=== PATIENT | female | born 1945 | race Caucasian/White ===

== ENCOUNTER → 2017-07-30 | Outpatient (CLI) | payer MEDICARE, BC ==
--- NOTE | 2017-07-31 12:08 | MM ---
Reason for exam: screening (asymptomatic). Last mammogram was performed 1 year and 4 months ago. History: Patient is postmenopausal. Family history of breast cancer in cousin, breast cancer in paternal cousin, and breast cancer in aunt. Benign excisional biopsy, January 26, 1997. 4 cyst aspirations of the right breast. Took estrogen for 19 years. Physical Findings: A clinical breast exam by your physician is recommended on an annual basis and results should be correlated with mammographic findings. MG 3D Screening Mammo W/Cad Bilateral CC and MLO view(s) were taken. Prior study comparison: April 11, 2016, bilateral MG 3d screening mammo w/cad. September 28, 2011, bilateral digital screening mammo w/CAD. The breast tissue is heterogeneously dense. This may lower the sensitivity of mammography. Finding: There are typically benign vascular, round calcifications in both breasts. Previous mammotome biopsy in the left breast. There is a chronic nodularity in the left breast. Asymmetric breast tissue in the right breast, stable. There is no discrete abnormality. ASSESSMENT: Benign, BI-RAD 2 RECOMMENDATION: Routine screening mammogram of both breasts in 1 year.
== END | disposition home or self-care (01) ==
LOC: RADMAMWWP 16:02
PROVIDERS: ATTEND Family Medicine
DX: Z12.31 Encounter for screening mammogram for malignant neoplasm of breast (principal)
CPT/HCPCS: 77063; G0202

== ENCOUNTER → 2018-08-13 | Outpatient (CLI) | payer MEDICARE, BC ==
--- NOTE | 2018-08-14 08:52 | MM ---
Reason for exam: screening (asymptomatic). Last mammogram was performed 1 year ago. History: Patient is postmenopausal. Family history of breast cancer in mother, breast cancer in maternal aunt, breast cancer in maternal cousin, and breast cancer in paternal cousin. Benign excisional biopsy, January 26, 1997. 4 cyst aspirations of the right breast. Took estrogen for 19 years. Physical Findings: A clinical breast exam by your physician is recommended on an annual basis and results should be correlated with mammographic findings. MG 3D Screening Mammo W/Cad Bilateral CC and MLO view(s) were taken. XCCL view(s) were taken of the right breast. Prior study comparison: July 30, 2017, bilateral MG 3d screening mammo w/cad. April 11, 2016, bilateral MG 3d screening mammo w/cad. The breast tissue is heterogeneously dense. This may lower the sensitivity of mammography. Finding: There are typically benign vascular, round, linear calcifications in both breasts. There is a chronic nodularity in the left breast. There is no discrete abnormality. ASSESSMENT: Benign, BI-RAD 2 RECOMMENDATION: Routine screening mammogram of both breasts in 1 year.
== END | disposition home or self-care (01) ==
LOC: RADMAMWWP 09:44
PROVIDERS: ATTEND Family Medicine
DX: Z12.31 Encounter for screening mammogram for malignant neoplasm of breast (principal)
CPT/HCPCS: 77063; 77067

== ENCOUNTER → 2019-11-20 | Outpatient (CLI) | payer MEDICARE, BC ==
[~2019-11-20] MED LIST: REGADENOSON 0.4 MG/5 ML SYRINGE IV ONE
--- NOTE | 2019-11-20 12:10 | NM ---
EXAMINATION TYPE: NM stress lexiscan cardiolite DATE OF EXAM: 11/20/2019 COMPARISON: NONE HISTORY: Angina at rest and chest pain TECHNIQUE: After the intravenous administration of 10.21 mCi Tc 99m Sestamibi - Cardiolite resting S PECT images acquired 45 minutes post injection. The patient received 0.4mg Lexiscan, 25.0 mCi Tc 99m Sestamibi - Stress images obtained [address] injection FINDINGS: Review of stress and rest SPECT images demonstrates decreased uptake along the anterior septal left v entricle towards the apex on stress as compared to rest images Gated analysis shows normal wall motio n with an estimated left ventricular ejection fraction of 55 %. IMPRESSION: Pharmacologically induced left ventricular myocardial ischemia A Yellow level critical message alert has been initiated for Christopher Parikh MD via the [facility] System on 11/20/2019 12:07 PM. This message alert has been sent to Christopher Parikh MD vi a the preferences provided by the clinician for the receipt of Radiology Critical Findings. Message I [id number].
--- NOTE | 2019-11-20 12:36 | EST ---
EXERCISE STRESS AGE: 74 SEX: Female HT: 5'8" WT: 162 pounds PROTOCOL: Lexiscan Cardiolite STAGE: DURATION OF EXERCISE: HEART RATE REST: 71 BLOOD PRESSURE REST: 143/81 MAXIMUM HEART RATE ACHIEVED: 92 MAXIMUM BLOOD PRESSURE: 143/81 85% MPHR: 125 100% MPHR: 147 METS: INDICATIONS: Chest pain. CLINICAL INFORMATION: STRESS DATA: Heart rate 71, pressure is 143/81 mmHg. Baseline EKG showed sinus rhythm. 0.4 mg of Lexiscan given over 15 seconds per protocol. Max heart rate was 92 beats per minute. Maximum blood pressure was 143/81 mmHg. Clinically the patient did not have no symptoms and the EKG did not show any significant ST or T-wave abnormalities concerning for ischemia. CONCLUSION: 1. Nondiagnostic electrocardiogram stress testing in response to Lexiscan. 2. Please follow up on the Cardiolite portion on separate report from Radiology Department. MMODL / IJN: [id number] /
== END | disposition home or self-care (01) ==
LOC: RADNMMAIN 08:48
PROVIDERS: ATTEND Family Medicine
DX: I25.119 Atherosclerotic heart disease of native coronary artery with unspecified angina pectoris (principal)
CPT/HCPCS: 93017; 78452; A9500; J2785

== ENCOUNTER 2019-11-26 07:10 | Inpatient (IN) | payer MEDICARE, BC ==
[~2019-11-26 07:10] MED LIST changes: +ALPRAZolam 0.25 MG TAB PO PRN; +ALPRAZolam 0.5 MG TAB PO PRN; +ASPIRIN 325 MG TAB PO STA; +NITROGLYCERIN SL TABS 0.4 MG TAB SUBLINGUAL PRN; -REGADENOSON 0.4 MG/5 ML SYRINGE IV ONE; +SODIUM CHLORIDE 0.9% 1,000 ML in EMPTY BAG 1 BAG IV ONE
[2019-11-26] MEDS ORDERED: METOPROLOL TARTRATE 12.5 MG TAB PO STA (07:33)
[2019-11-26] MEDS ORDERED: cloNIDine HCL 0.1 MG TAB PO STA (07:33)
[2019-11-26] MEDS ORDERED: INSULIN ASPART (NovoLOG) 100 UNIT/ML VIAL SQ ONE (07:43)
[2019-11-26 07:49] LABS: Glucose,Whole Blood 263 mg/dL (75-99)
[2019-11-26 07:53] LABS: Basophils % (A) 1 %; Eosinophils # (A) 0.1 k/uL (0-0.7); Eosinophils % (A) 1 %; HCT 41.5 % (34.0-46.0); HGB 14.4 gm/dL (11.4-16.0); Lymphocytes # (A) 2.4 k/uL (1.0-4.8); Lymphocytes % (A) 30 %; MCH 29.7 pg (25.0-35.0); MCHC 34.8 g/dL (31.0-37.0); MCV 85.4 fL (80.0-100.0); Mean Platelet Volume 8.1; Monocytes # (A) 0.4 k/uL (0-1.0); Monocytes % (A) 5 %; Neutrophils # (A) 4.9 k/uL (1.3-7.7); Neutrophils % (A) 61 %; Platelet Count 267 k/uL (150-450); RBC 4.86 m/uL (3.80-5.40); RDW 12.7 % (11.5-15.5)
[2019-11-26 08:04] LABS: African American GFR (CKD) >90 (>60 ml/min/1.73 sqM); Anion Gap 11 mmol/L; Blood Urea Nitrogen 18 mg/dL (7-17); Calcium 9.9 mg/dL (8.4-10.2); Carbon Dioxide 34 mmol/L (22-30); Chloride 93 mmol/L (98-107); Glucose 268 mg/dL (74-99); Non-African American GFR(CKD) >90 (>60 ml/min/1.73 sqM); Sodium 138 mmol/L (137-145)
[2019-11-26] MEDS ORDERED: MIDAZOLAM 2 MG/2 ML VIAL IVP ONE (09:05)
[2019-11-26] MEDS ORDERED: LIDOCAINE 1% INJ 10MG/ML (20 ML MDV) SQ ONE (09:07)
[2019-11-26] MEDS: VERAPAMIL SYRINGE (5 MG/10 ML) INTRAARTER ONE ×2 (09:13→10:47)
[2019-11-26] MEDS ORDERED: POTASSIUM CHLORIDE ER 20 MEQ TAB.ER PO ONE (09:15)
[2019-11-26] MEDS ORDERED: HEPARIN SODIUM 1,000 UN/ML (10ML VL) IV ONE (09:15)
[2019-11-26] MEDS ORDERED: BIVALIRUDIN BOLUS 250 MG/50 ML IV ONE (09:35)
[2019-11-26] MEDS ORDERED: BIVALIRUDIN 250 MG in SODIUM CHLORIDE 0.9% 50 ML IV ONE ×2 (09:36→10:34)
[2019-11-26] MEDS ORDERED: IOPAMIDOL-370 100ML BTL INJ ONE ×3 (09:37→10:46)
[2019-11-26] MEDS ORDERED: POTASSIUM CHLORIDE ER 20 MEQ TAB.ER PO STA ×2 (09:43→10:55)
[2019-11-26] MEDS ORDERED: NITROGLYCERIN 1000MCG/10ML SYRINGE INTRACORON ONE (10:42)
[2019-11-26] MEDS ORDERED: TICAGRELOR 90 MG TAB PO ONE (10:46)
[2019-11-26] MEDS ORDERED: ATROPINE SULFATE 0.1 MG/ML 10ML SYRINGE IV PRN (11:04)
[2019-11-26] MEDS ORDERED: MAG HYDROX/AL HYDROX/SIMETH 30 ML CUP PO PRN (11:04)
[2019-11-26] MEDS ORDERED: RX INFO: IV CONTRAST WAS GIVEN 1 EACH MISC MISCELLANE PRN (11:04)
--- NOTE | 2019-11-26 11:49 | CC ---
CARDIAC CATHETERIZATION REPORT DATE OF SERVICE: 11/26/2019. PROCEDURE: 1. Left heart catheterization and coronary angiography. 2. PTCA and stenting of a calcified tortuous mid LAD with a drug-eluting stent. PERFORMED BY: Dr. Jv Kee Moderate conscious sedation time was 109 minutes. Patient was administered Versed. Oxygen saturation, hemodynamics and EKG were monitored closely. CLINICAL INFORMATION: Mrs. Alia Gilman is a 74-year-old lady with history of type 2 diabetes insulin- requiring, hypertension, hypercholesterolemia who had a recent positive stress test with anteroapical reversible defect and preserved LV function. She was advised coronary angiography after due discussion regarding risks, benefits, options. She was advised cardiac catheterization and possible PCI based on the findings. PROCEDURE NOTE: Under local anesthesia and strict aseptic precautions, a 6-Khmer introducer was placed in the right radial artery. Using a JL3.5 and a JR4 catheter, I performed selective coronary angiography and using the same right catheter I checked LV pressures. LV gram was not performed. Following the coronary angiography because of a significant lesion in the mid LAD, I proceeded to perform PCI in the same setting. At the end of the procedure, the sheath was taken out and TR band applied as per protocol with excellent saturation of the fingers of the right hand. CARDIAC CATHETERIZATION FINDINGS: RIGHT CORONARY ARTERY: This comes off from somewhat of a posterior location. This is a nondominant vessel, fair in caliber distally bifurcates into 2 branches, both of which are small in caliber and distribution, but no significant disease in the nondominant RCA. LEFT MAIN CORONARY ARTERY. It appears that the left main is very small or there are 2 separate origins of LAD and circumflex right next to each other. No significant disease. LEFT ANTERIOR DESCENDING CORONARY ARTERY: Good caliber vessel extends along the anterior wall and it gives off a large septal branch proximally and then a small diagonal branch after which there is an eccentric 90% lesion following which the caliber improves and the vessel is very tortuous, calcified, extends all the way to the apex and curves over the apex to supply the inferoapical portion of left ventricle. Mid LAD therefore has a heavily calcified eccentric lesion and there is a quite a bit of tortuosity and calcium in and after the lesion and also before the lesion. LEFT POSTERIOR CIRCUMFLEX CORONARY ARTERY: This is a dominant vessel gives off a large obtuse marginal that runs laterally and distally bifurcates into a large PDA branch and a small PLV branch both of which supply a fair amount of myocardium. No significant disease is noted in the circumflex system. LEFT VENTRICULOGRAM: LV gram was not performed. FINAL IMPRESSION: This patient has no gradient across aortic valve. Left ventricular end-diastolic pressure was about 8 to 10 mmHg. There was no gradient across aortic valve. Patient has a codominant probably a left dominant system. No significant disease in the RCA or in the dominant circumflex. Mid LAD has a 90% eccentric calcified lesion and the vessel is quite tortuous. RECOMMENDATIONS: I recommended PCI of mid LAD and proceeded to perform in the same setting. PCI PROCEDURE DETAILS: Initially I started with a JL3.5 guide catheter and a run-through wire. With some difficulty I was able to get into the LAD because the origin of LAD was right next to the circumflex. The wire was kept going into the septal branch and I had difficulty getting the wire into the LAD because of extreme tortuosity right after the lesion. The wire was then kept in the septal branch for quite some time. I then switched over to XBLAD 3.5 guide catheter and I used a 45-degree angle SuperCross catheter and a long run-through wire. With this I was able to get past the tortuosity and went into the LAD and kept the wire distally. However, guide support was quite difficult to advance any balloon. After some deliberation and trying for quite a bit of time, I used a GuideLiner. Using a GuideLiner, I was able to advance a 2.5, 18 mm NC Trek balloon and I inflated the lesion at 12 atmospheres. There was a small flap noted right after the angiogram. Using the GuideLiner in the same position, the wire then came into the septal branch back from the distal LAD. I left the wire in the septal branch and advanced a 3.0 caliber 18 mm long Xience stent and deployed this at 12 atmospheres. Patient had mild chest discomfort, but no significant EKG changes. She has underlying right bundle. Excellent angiographic result without complication was achieved. Patient received Angiomax bolus and infusion and also received 180 mg of Brilinta orally. The entire LAD opened up very well with remarkably good flow and the residual stenosis was 0%. Excellent angiographic result was achieved without complication. Results were discussed with the patient and daughter and I will discharge her home if she remains stable tomorrow morning. She was sent to the room in a stable condition with a TR band in place. Patient received Angiomax bolus and infusion as per protocol and 180 mg of Brilinta. MMODL / IJN: [id number] /
[2019-11-26 11:51] LABS: Glucose,Whole Blood 233 mg/dL (75-99)
--- NOTE | 2019-11-26 11:54 | LTR ---
November 26, 2019 Re: Alia Gilman Dear Dr. Parikh: Please find enclosed my detailed cardiac cath and PCI report on Mrs. Alia Gilman. This lady had a mid LAD lesion and I am pleased to report to you that she had an excellent angiographic result without complication. I expect that she will be discharged tomorrow if she remains stable. Thank you for your referral and please call for questions. With kindest regards. Sincerely yours, MD YAN Dos Santos / AMANDAN: [id number] /
[2019-11-26] MEDS: POTASSIUM CHLORIDE ER 20 MEQ TAB.ER PO STA ×2 (11:55→12:01)
[2019-11-26] MEDS: SODIUM CHLORIDE 0.9% 1,000 ML IV SCH (12:01)
[2019-11-26 13:39] LABS: Glucose,Whole Blood 314 mg/dL (75-99)
--- NOTE | 2019-11-26 14:12 | CT ---
EXAMINATION TYPE: CT brain wo con DATE OF EXAM: 11/26/2019 HISTORY: altered mental status CT DLP: 3214.4 mGycm. Automated Exposure Control for Dose Reduction was Utilized. TECHNIQUE: CT scan of the head is performed without contrast. COMPARISON: None. FINDINGS: There is no acute intracranial hemorrhage or midline shift identified. There is diffuse v entricular and sulcal prominence consistent with diffuse age-related cerebral atrophy. There is low- attenuation in the periventricular white matter consistent with chronic small vessel ischemic change. The globes are intact and the visualized sinuses are clear. IMPRESSION: No acute intracranial hemorrhage or midline shift. There is mild diffuse age-related ce rebral atrophy and chronic small vessel ischemic change noted.
[2019-11-26 14:40] LABS: ALT 18 U/L (4-34); AST 51 U/L (14-36); African American GFR (CKD) >90 (>60 ml/min/1.73 sqM); Albumin 4.3 g/dL (3.5-5.0); Alkaline Phosphatase 90 U/L (38-126); Anion Gap 12 mmol/L; Blood Urea Nitrogen 14 mg/dL (7-17); Calcium 9.4 mg/dL (8.4-10.2); Carbon Dioxide 27 mmol/L (22-30); Chloride 94 mmol/L (98-107); Glucose 254 mg/dL (74-99); Non-African American GFR(CKD) >90 (>60 ml/min/1.73 sqM); Potassium 4.1 mmol/L (3.5-5.1); Sodium 133 mmol/L (137-145); Total Bilirubin 1.2 mg/dL (0.2-1.3); Total Protein 7.2 g/dL (6.3-8.2)
[2019-11-26] MEDS ORDERED: HALOPERIDOL LACTATE 5 MG/ML 1 ML VIAL IVP PRN (14:43)
[2019-11-26] MEDS ORDERED: HALOPERIDOL LACTATE 5 MG/ML 1 ML VIAL ONE (14:45)
[2019-11-26] MEDS ORDERED: LORazepam 2 MG/ML INJ IV STA (14:53)
[2019-11-26] MEDS ORDERED: ALTEPLASE BOLUS 7 MG in EMPTY SYRINGE 1 SYR IV STA (14:54)
[2019-11-26] MEDS ORDERED: ALTEPLASE 59 MG in EMPTY BAG 1 BAG IV ONE (15:00)
--- NOTE | 2019-11-26 16:04 | CT ---
EXAMINATION TYPE: CODE STROKE: CTA head neck DATE OF EXAM: 11/26/2019 HISTORY: Acute change of mental status post cath. COMPARISON: CT brain same date CT DLP: 498.7 mGycm. Automated Exposure Control for Dose Reduction was Utilized. TECHNIQUE: CTA scan of the neck is performed with IV Contrast, patient injected with 65 mL of Isovue 370, axial images are obtained, coronal and sagittal reformatted images are reviewed. Three-D recons tructed images are created on an independent workstation and reviewed. FINDINGS: Carotid/Vascular Structures: Ascending aorta is aneurysmal measuring approximately 4.4 cm. Proximal d escending aorta measures 2.9 cm. There are 3 super aortic branch vessels. The innominate artery, left and right common carotid artery, left and right subclavian arteries are patent, the left vertebral a rtery is dominant. The common carotid arteries show normal bifurcation, only mild atheromatous change s are present, internal and external carotid arteries are patent. Anterior posterior circulation with in [place] are patent, there is no evident dissection, embolus, or aneurysm. Carotid sip hons. Cerebral vascular calcifications are present within the Other: Degenerative disc changes, facet arthropathy noted in the visualized spine, multilevel fora hardy encroachment. Arthropathy noted within the shoulders. IMPRESSION: Aortic aneurysm is partially visualized. No evident aneurysm, dissection, or embolus.
[2019-11-26 16:27] LABS: Basophils % (A) 0 %; Eosinophils % (A) 0 %; HCT 41.6 % (34.0-46.0); HGB 13.5 gm/dL (11.4-16.0); Lymphocytes # (A) 1.4 k/uL (1.0-4.8); Lymphocytes % (A) 11 %; MCH 29.3 pg (25.0-35.0); MCHC 32.4 g/dL (31.0-37.0); Mean Platelet Volume 8.1; Monocytes # (A) 0.6 k/uL (0-1.0); Monocytes % (A) 5 %; Neutrophils % (A) 82 %; Platelet Count 220 k/uL (150-450); RBC 4.59 m/uL (3.80-5.40); RDW 12.7 % (11.5-15.5); WBC 12.2 k/uL (3.8-10.6)
[2019-11-26 16:31] LABS: MCV 90.5 fL (80.0-100.0)
[2019-11-26 16:31] LABS: INR 1.1 (<1.2); Partial Thromboplastin Time 26.9 sec (22.0-30.0)
[2019-11-26 16:34] LABS: African American GFR (CKD) >90 (>60 ml/min/1.73 sqM); Anion Gap 13 mmol/L; Blood Urea Nitrogen 12 mg/dL (7-17); Calcium 9.3 mg/dL (8.4-10.2); Carbon Dioxide 23 mmol/L (22-30); Chloride 96 mmol/L (98-107); Glucose 248 mg/dL (74-99); Magnesium 1.3 mg/dL (1.6-2.3); Non-African American GFR(CKD) >90 (>60 ml/min/1.73 sqM); Potassium 4.6 mmol/L (3.5-5.1); Sodium 132 mmol/L (137-145)
[2019-11-26 17:13] LABS: Creatine Kinase MB 1.3 ng/mL (0.0-2.4)
[2019-11-26] MEDS: glipiZIDE 10 MG TAB PO SCH (17:18)
[2019-11-26 17:22] LABS: Troponin I 0.135 ng/mL (0.000-0.034)
--- NOTE | 2019-11-26 17:34 | P.CNNES ---
History of Present Illness Consult date: 11/26/19 Requesting physician: Shelia Henderson Reason for Consult: Acute stroke History of Present Illness: Patient is a 74-year-old female, who came for an elective cardiac catheterization today, in which she was found to have mid LAD lesion for which she underwent cardiac stenting. Patient came out of cardiac catheterization in normal mentation. Her last known well was at 1 PM. Patient was noted to have acute mental confusion, not able to speak, encephalopathic, noted at 1:30 PM. Stroke code was activated. Her NIH stroke scale was reported as 9. The stroke team spoke to the on-call stroke neurologist Dr. Billy, who recommended intravenous thrombolysis with TPA. The nurses in the ICU, and MsShoshana Shelia Beatriz, STULL INSTALLER called me at 2:42 PM, for me to go over her computed tomography scan of the head. I looked at the computed tomography scan of head on the computer, and there were no signs of any bleed or obvious contraindications. I recommended to proceed with TPA (based only upon my review of CT head), if recommended by on- call stroke neurologist. I then received a text through [employer] at 3:31 PM, the patient still has not received TPA and the nurse and cardiology nurse practitioner. Ms Shelia Beatriz were concerned about giving TPA, as patient has received aspirin 325 mg, Brilinta 180 mg, heparin bolus of 2500 units earlier this morning and also Angiomax 375 mg at 10 AM. The ICU team and cardiology STULL INSTALLER wanted me to come over and evaluate the patient. I immediately came over and saw the patient. Patient was significantly encephalopathic, not opening her eyes, or following commands, or speaking any words. Patient appeared somewhat restless, although better than how she was earlier reported with acute agitation. Patient's examination did not reveal any obvious focality, as her pupils are round and reacting, gaze is midline, her face appeared symmetric and she was moving all 4 extremities somewhat equally. Patient did have plantars upgoing. At the same time, report of CTA came, which showed no large vessel occlusion. I spoke to the stroke neurologist Dr Smith, and discussed about the medication she has received earlier, who felt it was still safe to give IV TPA. Patient was not a candidate for mechanical thrombectomy based upon CTA head and neck report. Computed tomography scan of head performed at 2:09 PM showed no acute process. No midline shift. CTA of head and neck performed at 3:43 PM showed aortic aneurysm is partially visualized. No evident aneurysm, dissection or embolus. No large vessel occlusion or thrombus. Patient's PTT is normal 26.9 and INR 1.1. CBC with WBC 12.2, hemoglobin 13.5 and platelets 220. Sodium 132 potassium 4.6 renal functions normal, glucose 248 lactate 3.5. Patient prior to arrival to the hospital today, was neurologically completely intact, as per cardiology report. Review of Systems ROS unobtainable: due to mental status Past Medical History Past Medical History: Chest Pain / Angina, Diabetes Mellitus, Hypertension History of Any Multi-Drug Resistant Organisms: None Reported Past Surgical History: Cholecystectomy, Hysterectomy, Tonsillectomy Additional Past Surgical History / Comment(s): rectocele/cystocle repair Past Anesthesia/Blood Transfusion Reactions: No Reported Reaction Past Psychological History: No Psychological Hx Reported Smoking Status: Never smoker Past Alcohol Use History: None Reported Past Drug Use History: None Reported - Past Family History Mother Family Medical History: Cancer Brother(s) Family Medical History: Cancer Medications and Allergies Home Medications Medication Instructions Recorded Confirmed Type Aspirin [Adult Low Dose Aspirin EC] 81 mg PO HS 11/23/19 11/26/19 History Chlorthalidone [Hygroton] 25 mg PO DAILY 11/23/19 11/26/19 History Cholecalciferol [Vitamin D3 (25 5,000 unit PO DAILY 11/23/19 11/26/19 History Mcg = 1000 Iu)] Furosemide [Lasix] 20 mg PO Q48H 11/23/19 11/26/19 History Metoprolol Tartrate [Lopressor] 12.5 mg PO BID 11/23/19 11/26/19 History Potassium Chloride 10 meq PO BID 11/23/19 11/26/19 History Rosuvastatin Calcium [Crestor] 5 mg PO HS 11/23/19 11/26/19 History cloNIDine HCL [Catapres] 0.1 mg PO DAILY 11/23/19 11/26/19 History glipiZIDE [Glucotrol] 20 mg PO AC-BID 11/23/19 11/23/19 History metFORMIN HCL 1,000 mg PO BID 11/23/19 11/23/19 History Allergies Allergy/AdvReac Type Severity Reaction Status Date / Time clarithromycin [From Biaxin] Allergy Chest Pain Unverified 11/23/19 14:46 primidone Allergy Unknown Unverified 11/23/19 14:46 Physical Examination - Vital Signs Vital Signs: Vital Signs Temp Pulse Pulse Resp BP BP Pulse Ox 11/26/19 12:00 60 19 11/26/19 11:49 60 114/70 11/26/19 11:34 141/86 11/26/19 11:19 145/70 11/26/19 11:04 96.9 F L 61 19 134/70 100 11/26/19 07:39 183/99 11/26/19 07:31 98.1 F 94 16 190/104 100 Intake and Output 11/26/19 11/26/19 11/26/19 06:59 14:59 22:59 Intake Total 722 Balance 722 Intake: IV 722 Other: Weight 73.4 kg On examination patient is an elderly female, who is laying in the bed, appears encephalopathic, eyes closed, slightly restless, does not open her eyes to calling her name. She does not open her eyes to sternal rub, or with painful stimuli, although tries to withdraw her hands purposefully on both sides. She does move all 4 extremities somewhat equally although right may be (?slightly) better than the left. Her face appears symmetric. Pupils are round and reactive to light. Visual narvaez could not be tested. Gaze is midline. Reflexes are symmetric and plantars are upgoing bilaterally. Tone is equal bilaterally. Results - Laboratory Findings CBC and BMP: 11/26/19 13:38 11/26/19 16:05 Abnormal Lab Findings: Abnormal Labs 11/26/19 11/26/19 11/26/19 07:30 07:38 11:50 WBC Neutrophils # Sodium Potassium 3.0 L Chloride 93 L Carbon Dioxide 34 H BUN 18 H Creatinine Glucose 268 H POC Glucose (mg/dL) 263 H 233 H Plasma Lactic Acid Rosendo Magnesium AST 11/26/19 11/26/19 11/26/19 13:37 13:38 13:38 WBC 12.2 H Neutrophils # 10.0 H Sodium 133 L Potassium Chloride 94 L Carbon Dioxide BUN Creatinine 0.46 L Glucose 254 H POC Glucose (mg/dL) 314 H Plasma Lactic Acid Rosendo Magnesium AST 51 H 11/26/19 11/26/19 16:05 16:05 WBC Neutrophils # Sodium 132 L Potassium Chloride 96 L Carbon Dioxide BUN Creatinine 0.45 L Glucose 248 H POC Glucose (mg/dL) Plasma Lactic Acid Rosendo 3.5 H* Magnesium 1.3 L AST Assessment and Plan Assessment: * Acute onset of encephalopathy, with altered mental status, post cardiac cath. Rule out acute CVA versus acute metabolic encephalopathy versus seizure. Patient at present is mute, not talking, encephalopathic, otherwise limited exam appears not definitively lateralizing. She does have bilateral Babinski sign. * Coronary artery disease, status post cardiac stenting. * Hypertension * Diabetes Plan: * Patient is going to receive intravenous TPA per protocol. * Standard Post-TPA orders needs to be followed. * No anticoagulants, or antiplatelets for the next 24 hours. * Repeat computed tomography scan of head in 24 hours to rule out any bleed. * Recommend MRI of the brain if possible (in relation to recent cardiac stenting) * We will check hemoglobin A1c, fasting a.m. lipid panel, TSH and ammonia. * 2-D echo with bubble study, rule out PFO or other embolic source. * EEG in the morning. * Close neuro checks. Call neurology if any acute neurological changes. * Also spoke to aluminum shingle roofer Dr. Kee. He in the ICU staff has discussed with the family about risk and benefits of TPA. PT/PTT and platelets are normal.
--- NOTE | 2019-11-26 17:57 | PN ---
PROGRESS NOTE DATE OF SERVICE: 11/26/2019 Mrs. Alia Gilman is a lady with type 2 diabetes, hypertension, hyperlipidemia, who is 74 years of age and also had a strongly positive stress test with symptoms strongly suggestive of angina pectoris. She was brought in for coronary angiography which was performed from right radial approach. There was tortuosity in the brachiocephalic system as well as the ascending aorta. However, coronary angiography revealed 90% mid left anterior descending artery lesion following an area of calcification and significant tortuosity beyond that. The percutaneous transluminal coronary angioplasty was a prolonged procedure. I had to use a Guideliner. However, an excellent angiographic result was achieved uneventfully. The patient received Angiomax bolus and infusion and she also received Brilinta 180 mg orally. She was brought back to the room, was quite stable for a couple of hours, and then she developed an episode of being confused and also quite agitated and quite disoriented. Possibility of stroke was considered. A code stroke was called. She had a CAT scan which did not reveal any bleed. She went on to have a CT angio after adequate sedation and that also did not reveal any evidence of thrombus or obstruction of any of the major visualized arterial system intracranially also. However, I spoke to Dr. Mcgrath and he felt under the circumstances tPA is still indicated and he thought possibly that maybe there may be a small clot which is not visualized. Given this, we went ahead with the tPA as per protocol. The patient remains quite sedated because of Haldol as well. She is able to move all four extremities, although this is not a purposeful movement in view of the sedation. She is hemodynamically stable. The right radial cath site is clean and dry with a decent saturation of the fingers. We are gradually reducing the pressure to up to 2 mL of air and we will see how she does. The patient's blood pressure is 150/90, pulse rate is 84 per minute. No jugular venous distention. S1 and S2 hear normally. A short systolic murmur noted. Lungs are clear. Neurological examination was not possible. Radial site is clean and dry. We will hydrate her with 75 mL normal saline for 18 hours. Lactate is slightly high because of her clinical situation. We will go ahead and continue the tPA as per protocol, perform a CAT scan tomorrow morning, and if there is no bleed, will resume aspirin and Brilinta in 36 to 48 hours. I discussed my thoughts in detail with the patient's daughter, Frida Madrid, and I also spoke to Dr. Garcia and Dr. Parikh. Prognosis remains guarded. I will be evaluating her again tomorrow. YAN / MAGALI: [id number] /
--- NOTE | 2019-11-26 18:31 | P.CONS ---
History of Present Illness - Reason for Consult Consult date: 11/26/19 - Chief Complaint Alertered mental status - History of Present Illness This is a 74-year-old white female with known history of diabetes who had abnormal stress test. She had appropriate cardiac catheterization after the stress test which proved to be fairly straightforward from a cardiology per spective. However postoperatively she had mental status changes requiring TPA after evaluation from neurology. The patient is now obtunded secondary to sedative medication. Review of Systems ROS unobtainable: due to mental status Past Medical History Past Medical History: Chest Pain / Angina, Diabetes Mellitus, Hypertension History of Any Multi-Drug Resistant Organisms: None Reported Past Surgical History: Cholecystectomy, Hysterectomy, Tonsillectomy Additional Past Surgical History / Comment(s): rectocele/cystocle repair Past Anesthesia/Blood Transfusion Reactions: No Reported Reaction Past Psychological History: No Psychological Hx Reported Smoking Status: Never smoker Past Alcohol Use History: None Reported Past Drug Use History: None Reported - Past Family History Mother Family Medical History: Cancer Brother(s) Family Medical History: Cancer Medications and Allergies Home Medications Medication Instructions Recorded Confirmed Type Aspirin [Adult Low Dose Aspirin EC] 81 mg PO HS 11/23/19 11/26/19 History Chlorthalidone [Hygroton] 25 mg PO DAILY 11/23/19 11/26/19 History Cholecalciferol [Vitamin D3 (25 5,000 unit PO DAILY 11/23/19 11/26/19 History Mcg = 1000 Iu)] Furosemide [Lasix] 20 mg PO Q48H 11/23/19 11/26/19 History Metoprolol Tartrate [Lopressor] 12.5 mg PO BID 11/23/19 11/26/19 History Potassium Chloride 10 meq PO BID 11/23/19 11/26/19 History Rosuvastatin Calcium [Crestor] 5 mg PO HS 11/23/19 11/26/19 History cloNIDine HCL [Catapres] 0.1 mg PO DAILY 11/23/19 11/26/19 History glipiZIDE [Glucotrol] 20 mg PO AC-BID 11/23/19 11/23/19 History metFORMIN HCL 1,000 mg PO BID 11/23/19 11/23/19 History Allergies Allergy/AdvReac Type Severity Reaction Status Date / Time clarithromycin [From Biaxin] Allergy Chest Pain Unverified 11/23/19 14:46 primidone Allergy Unknown Unverified 11/23/19 14:46 Physical Exam Vitals: Vital Signs Temp Pulse Pulse Resp BP BP Pulse Ox 11/26/19 15:30 97.7 F 96 11/26/19 12:00 60 19 11/26/19 11:49 60 114/70 11/26/19 11:34 141/86 11/26/19 11:19 145/70 11/26/19 11:04 96.9 F L 61 19 134/70 100 11/26/19 07:39 183/99 11/26/19 07:31 98.1 F 94 16 190/104 100 Intake and Output 11/26/19 11/26/19 11/26/19 06:59 14:59 22:59 Intake Total 722 Balance 722 Intake: IV 722 Other: Weight 73.4 kg - Constitutional General appearance: no acute distress - EENT Eyes: EOMI - Neck Neck: no lymphadenopathy - Respiratory Respiratory: bilateral: CTA - Cardiovascular Rhythm: regular Heart sounds: normal: S1, S2 Abnormal Heart Sounds: no S3 Gallop - Gastrointestinal General gastrointestinal: soft, no tenderness - Integumentary Integumentary: no cellulitis - Neurologic Neurologic: CNII-XII intact - Psychiatric Psychiatric: no A&O x's 3 Results CBC & Chem 7: 11/26/19 13:38 11/26/19 16:05 Labs: Abnormal Lab Results - Last 24 Hours (Table) 11/26/19 11/26/19 11/26/19 Range/Units 07:30 07:38 11:50 WBC (3.8-10.6) k/uL Neutrophils # (1.3-7.7) k/uL Sodium (137-145) mmol/L Potassium 3.0 L (3.5-5.1) mmol/L Chloride 93 L (98-107) mmol/L Carbon Dioxide 34 H (22-30) mmol/L BUN 18 H (7-17) mg/dL Creatinine (0.52-1.04) mg/dL Glucose 268 H (74-99) mg/dL POC Glucose (mg/dL) 263 H 233 H (75-99) mg/dL Plasma Lactic Acid Rosendo (0.7-2.0) mmol/L Magnesium (1.6-2.3) mg/dL AST (14-36) U/L Troponin I (0.000-0.034) ng/mL 11/26/19 11/26/19 11/26/19 Range/Units 13:37 13:38 13:38 WBC 12.2 H (3.8-10.6) k/uL Neutrophils # 10.0 H (1.3-7.7) k/uL Sodium 133 L (137-145) mmol/L Potassium (3.5-5.1) mmol/L Chloride 94 L (98-107) mmol/L Carbon Dioxide (22-30) mmol/L BUN (7-17) mg/dL Creatinine 0.46 L (0.52-1.04) mg/dL Glucose 254 H (74-99) mg/dL POC Glucose (mg/dL) 314 H (75-99) mg/dL Plasma Lactic Acid Rosendo (0.7-2.0) mmol/L Magnesium (1.6-2.3) mg/dL AST 51 H (14-36) U/L Troponin I (0.000-0.034) ng/mL 11/26/19 11/26/19 11/26/19 Range/Units 13:38 16:05 16:05 WBC (3.8-10.6) k/uL Neutrophils # (1.3-7.7) k/uL Sodium 132 L (137-145) mmol/L Potassium (3.5-5.1) mmol/L Chloride 96 L (98-107) mmol/L Carbon Dioxide (22-30) mmol/L BUN (7-17) mg/dL Creatinine 0.45 L (0.52-1.04) mg/dL Glucose 248 H (74-99) mg/dL POC Glucose (mg/dL) (75-99) mg/dL Plasma Lactic Acid Rosendo 3.5 H* (0.7-2.0) mmol/L Magnesium 1.3 L (1.6-2.3) mg/dL AST (14-36) U/L Troponin I 0.135 H* (0.000-0.034) ng/mL Assessment and Plan (1) Altered mental status Current Visit: Yes Status: Acute Code(s): R41.82 - ALTERED MENTAL STATUS, U NSPECIFIED SNOMED Code(s): 634908864 (2) Diabetes Current Visit: Yes Status: Acute Code(s): E11.9 - TYPE 2 DIABETES MELLITUS WITHOUT COMPLICATIONS SNOMED Code(s): 57169058 (3) Abnormal stress test Current Visit: Yes Status: Acute Code(s): R94.39 - ABNORMAL RESULT OF OTHER CARDIOVASCULAR FUNCTION STUDY SNOMED Code(s): 886659017 Plan: The patient will be placed on appropriate protocol for altered mental status. Per appreciate multiple consultants including neurology, cardiology and critical care. Check CBC and CMP in a.m. She is a full code at this time. Time with Patient: Greater than 30
[2019-11-26] MEDS: METOPROLOL TARTRATE 12.5 MG TAB PO SCH (20:41)
[2019-11-26] MEDS: TICAGRELOR 90 MG TAB PO SCH (20:42)
[2019-11-26 20:52] LABS: Glucose,Whole Blood 353 mg/dL (75-99)
[2019-11-26] MEDS ORDERED: ATORVASTATIN 10 MG TAB PO SCH (21:00)
[2019-11-26] MEDS ORDERED: ZOLPIDEM 5 MG TAB PO PRN (21:00)
[2019-11-26 21:15] LABS: HCT 36.1 % (34.0-46.0); HGB 12.4 gm/dL (11.4-16.0); MCH 29.6 pg (25.0-35.0); MCHC 34.3 g/dL (31.0-37.0); MCV 86.2 fL (80.0-100.0); Mean Platelet Volume 8.9; Platelet Count 179 k/uL (150-450); RBC 4.19 m/uL (3.80-5.40); RDW 12.6 % (11.5-15.5); WBC 12.9 k/uL (3.8-10.6)
[2019-11-26] MEDS ORDERED: INSULIN DETEMIR (LEVEMIR) 100 UNIT/ML SYR SQ SCH (22:30)
[2019-11-26 23:52] LABS: Glucose,Whole Blood 330 mg/dL (75-99)
[2019-11-27] MEDS: INSULIN ASPART (NovoLOG) 100 UNIT/ML VIAL SQ SCH ×4 (00:02→18:29)
[2019-11-27] MEDS: SODIUM CHLORIDE 0.9% 1,000 ML IV SCH (00:04)
[2019-11-27 04:59] LABS: Basophils % (A) 0 %; Eosinophils % (A) 0 %; HCT 35.2 % (34.0-46.0); Lymphocytes # (A) 1.4 k/uL (1.0-4.8); Lymphocytes % (A) 15 %; MCH 29.4 pg (25.0-35.0); MCHC 34.1 g/dL (31.0-37.0); MCV 86.2 fL (80.0-100.0); Mean Platelet Volume 8.1; Monocytes # (A) 0.6 k/uL (0-1.0); Monocytes % (A) 7 %; Neutrophils # (A) 7.1 k/uL (1.3-7.7); Neutrophils % (A) 76 %; Platelet Count 205 k/uL (150-450); RBC 4.08 m/uL (3.80-5.40); RDW 12.8 % (11.5-15.5); WBC 9.3 k/uL (3.8-10.6)
[2019-11-27 05:12] LABS: African American GFR (CKD) >90 (>60 ml/min/1.73 sqM); Anion Gap 10 mmol/L; Blood Urea Nitrogen 13 mg/dL (7-17); Calcium 8.8 mg/dL (8.4-10.2); Carbon Dioxide 27 mmol/L (22-30); Chloride 99 mmol/L (98-107); Cholesterol 107 mg/dL (<200); Glucose 214 mg/dL (74-99); HDL Cholesterol 24 mg/dL (40-60); LDL Cholesterol,Calculated 48 mg/dL (0-99); Magnesium 1.4 mg/dL (1.6-2.3); Non-African American GFR(CKD) >90 (>60 ml/min/1.73 sqM); Sodium 136 mmol/L (137-145); Triglycerides 177 mg/dL (<150)
[2019-11-27 05:20] LABS: Partial Thromboplastin Time 22.2 sec (22.0-30.0); Prothrombin Time 10.7 sec (9.0-12.0)
[2019-11-27 05:28] LABS: Potassium 2.7 mmol/L (3.5-5.1)
[2019-11-27 06:00] LABS: Glucose,Whole Blood 212 mg/dL (75-99)
[2019-11-27] MEDS ORDERED: SODIUM CHLORIDE 0.9% 1,000 ML IV SCH ×2 (06:00→12:00)
[2019-11-27] MEDS: POTASSIUM CHLORIDE 20 MEQ in WATER FOR INJECTION 1 100ML.BAG IVPB SCH ×3 (06:14→13:37)
[2019-11-27] MEDS: MAGNESIUM SULFATE-D5W PMX 1 GM in DEXTROSE/WATER 1 100ML.BAG IVPB SCH ×3 (06:14→11:06)
--- NOTE | 2019-11-27 06:35 | PN ---
PROGRESS NOTE Mrs. Gilman is wide awake this morning, responding to questions, moving all 4 extremities and also speaking fairly well. She knows where she lives and the names of all her daughters. She is going for a CAT scan this morning. Laboratory data suggests a potassium of 2.7 and magnesium of 1.4, and this is being supplemented aggressively. She is going for a CAT scan today. She received tPA yesterday. The right radial cath site is clean and dry with a lot of ecchymoses, but the pulse is good and saturation in the fingers is good. Blood pressure is 118/70, pulse rate is about 84 per minute sinus. JVD 1 cm. No carotid bruit. Short systolic murmur is audible. Lungs revealed decent air entry. Abdomen is soft. Lower extremities reveal diminished pulses. Central nervous system reveals no focal deficits. IMPRESSION: 1. Status post PCI of complex mid LAD lesion, complicated by possible stroke. CAT scan did not reveal any significant bleed or midline shift. CT angio was negative for any evidence of thrombus or obstruction of any of the major vessels. 2. Hypertension. 3. Type 2 diabetes mellitus. 4. History of strongly positive stress test. RECOMMENDATIONS: I am recommending that we continue hydration up to 125 mL/hour normal saline, we will obtain a portable chest x-ray and echocardiogram today. She will have a CAT scan of her head this morning. We will supplement magnesium and potassium aggressively and hydrate her and recheck the lytes an Mg later during the day. Prognosis remains guarded, but clinically patient is much better today. Discussed my thoughts in detail with her and I will speak to her daughter as well. MMODL / IJN: [id number] / MTDD
--- NOTE | 2019-11-27 07:40 | CT ---
EXAMINATION TYPE: CT brain wo con DATE OF EXAM: 11/27/2019 COMPARISON: 11/26/2019 HISTORY: Post TPA Assessment. Altered mental status. CT DLP: 1099.4 mGycm Automated exposure control for dose reduction was used. FINDINGS: There is new small subarachnoid hemorrhage in the left posterior frontal lobe high along the skull ve rtex. The most prominent focus is seen on image 37 in the left hemisphere. Ariza-white matter interfac e is maintained. There is an old appearing lacunar injury of the right thalamus measuring 6 mm on raoms ge 25. No hydrocephalus is seen. No midline shift. Orbits are intact and unremarkable. Rightward nasa l septal deviation is seen. Frontal sinuses are hypoplastic. Paranasal sinuses and mastoid air cells are well aerated. Mild atherosclerosis of the intracranial vasculature. Calvarium is intact. IMPRESSION: 1. NEW LEFT FRONTAL OVERALL SMALL VOLUME SUBARACHNOID HEMORRHAGE. THIS WAS COMMUNICATED WITH A [place] [facility] CRITICAL MESSAGE ALERT SENT TO THE ORDERING PHYSICIAN THE OFFICE WAS CLOSED AT THE TIME OF INT ERPRETATION. Findings were also communicated to nurse Moise who relayed the message to Dr. Garcia in person during our phone conversation at 737am on 11/27/19. 2. 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 ACUITY COULD BE CONFIRMED WITH MRI. A [place] level critical message alert has been initiated for Milena Kee via the [employer] System on 11/27/2019 7:32 AM. This message alert has been sent to Milena Kee via the preferences provided by the clinician for the receipt of Radiology Critical Findings. Message ID [id number].
--- NOTE | 2019-11-27 07:40 | P.PN ---
Subjective Progress Note Date: 11/27/19 Principal diagnosis: The patient is here essentially for significant problems related to altered mental status. Computed tomography scan of the head does show subarachnoid changes. We'll anticipate transfer to appropriate tertiary care center. The patient seems much more oriented today. She seems somewhat mildly slurred secondary to medication changes. She was given Haldol yesterday. No other voiding symptoms. Objective - Vital Signs Vital signs: Vital Signs Temp 98.9 F 11/27/19 06:30 Pulse 81 11/27/19 07:00 Resp 19 11/27/19 07:00 BP 110/59 11/27/19 07:00 Pulse Ox 97 11/27/19 07:00 Intake & Output 11/26/19 11/27/19 11/27/19 18:59 06:59 18:59 Intake Total 722 1205 225 Output Total 2525 65 Balance 722 -1320 160 Weight 73.4 kg 71.7 kg Intake: IV 722 1125 225 Magnesium Sulfate-D5w Pmx 100 1 gm In Dextrose/Water 1 100ml.bag @ 100 mls/hr IVPB Q1H [facility] Rx#: [id number] Sodium Chloride 0.9% 1, 1125 125 000 ml @ 75 mls/hr IV . [id number] [facility] Rx#:[id number] Intake, IV Titration 80 Amount Alteplase 59 mg In Empty 60 Bag 1 bag @ 59 mls/hr IV ONCE ONE Rx#:[id number] Alteplase Bolus 7 mg In 20 Empty Syringe 1 syr @ 420 mls/hr IV ONCE STA Rx#: [id number] Output: Urine 2525 65 Other: Voiding Method Indwelling Catheter Indwelling Catheter - Constitutional General appearance: Present: average body habitus - EENT Eyes: Absent: abnormal pupil - Neck Neck: Absent: lymphadenopathy - Respiratory Respiratory: bilateral: CTA - Cardiovascular Rhythm: regular Heart sounds: normal: S1, S2 Abnormal Heart Sounds: Absent: S3 Gallop - Gastrointestinal General gastrointestinal: Present: soft. Absent: tenderness - Neurologic Neurologic Comment(s): Facial droop noted. - Musculoskeletal Musculoskeletal Comment(s): Lateralizing weakness - Labs CBC & Chem 7: 11/27/19 04:24 11/27/19 04:24 Labs: Abnormal Lab Results - Last 24 Hours (Table) 11/26/19 11/26/19 11/26/19 Range/Units 07:30 07:38 11:50 WBC (3.8-10.6) k/uL Neutrophils # (1.3-7.7) k/uL Sodium (137-145) mmol/L Potassium 3.0 L (3.5-5.1) mmol/L Chloride 93 L (98-107) mmol/L Carbon Dioxide 34 H (22-30) mmol/L BUN 18 H (7-17) mg/dL Creatinine (0.52-1.04) mg/dL Glucose 268 H (74-99) mg/dL POC Glucose (mg/dL) 263 H 233 H (75-99) mg/dL Plasma Lactic Acid Rosendo (0.7-2.0) mmol/L Magnesium (1.6-2.3) mg/dL AST (14-36) U/L Troponin I (0.000-0.034) ng/mL Triglycerides (<150) mg/dL HDL Cholesterol (40-60) mg/dL 11/26/19 11/26/19 11/26/19 Range/Units 13:37 13:38 13:38 WBC 12.2 H (3.8-10.6) k/uL Neutrophils # 10.0 H (1.3-7.7) k/uL Sodium 133 L (137-145) mmol/L Potassium (3.5-5.1) mmol/L Chloride 94 L (98-107) mmol/L Carbon Dioxide (22-30) mmol/L BUN (7-17) mg/dL Creatinine 0.46 L (0.52-1.04) mg/dL Glucose 254 H (74-99) mg/dL POC Glucose (mg/dL) 314 H (75-99) mg/dL Plasma Lactic Acid Rosendo (0.7-2.0) mmol/L Magnesium (1.6-2.3) mg/dL AST 51 H (14-36) U/L Troponin I (0.000-0.034) ng/mL Triglycerides (<150) mg/dL HDL Cholesterol (40-60) mg/dL 11/26/19 11/26/19 11/26/19 Range/Units 13:38 16:05 16:05 WBC (3.8-10.6) k/uL Neutrophils # (1.3-7.7) k/uL Sodium 132 L (137-145) mmol/L Potassium (3.5-5.1) mmol/L Chloride 96 L (98-107) mmol/L Carbon Dioxide (22-30) mmol/L BUN (7-17) mg/dL Creatinine 0.45 L (0.52-1.04) mg/dL Glucose 248 H (74-99) mg/dL POC Glucose (mg/dL) (75-99) mg/dL Plasma Lactic Acid Rosendo 3.5 H* (0.7-2.0) mmol/L Magnesium 1.3 L (1.6-2.3) mg/dL AST (14-36) U/L Troponin I 0.135 H* (0.000-0.034) ng/mL Triglycerides (<150) mg/dL HDL Cholesterol (40-60) mg/dL 11/26/19 11/26/19 11/26/19 Range/Units 20:06 20:06 20:50 WBC 12.9 H (3.8-10.6) k/uL Neutrophils # (1.3-7.7) k/uL Sodium (137-145) mmol/L Potassium (3.5-5.1) mmol/L Chloride (98-107) mmol/L Carbon Dioxide (22-30) mmol/L BUN (7-17) mg/dL Creatinine (0.52-1.04) mg/dL Glucose (74-99) mg/dL POC Glucose (mg/dL) 353 H (75-99) mg/dL Plasma Lactic Acid Rosendo 2.5 H* (0.7-2.0) mmol/L Magnesium (1.6-2.3) mg/dL AST (14-36) U/L Troponin I (0.000-0.034) ng/mL Triglycerides (<150) mg/dL HDL Cholesterol (40-60) mg/dL 11/26/19 11/27/19 11/27/19 Range/Units 23:50 04:24 04:24 WBC (3.8-10.6) k/uL Neutrophils # (1.3-7.7) k/uL Sodium 136 L (137-145) mmol/L Potassium 2.7 L* (3.5-5.1) mmol/L Chloride (98-107) mmol/L Carbon Dioxide (22-30) mmol/L BUN (7-17) mg/dL Creatinine 0.48 L (0.52-1.04) mg/dL Glucose 214 H (74-99) mg/dL POC Glucose (mg/dL) 330 H (75-99) mg/dL Plasma Lactic Acid Rosendo 2.2 H* (0.7-2.0) mmol/L Magnesium 1.4 L (1.6-2.3) mg/dL AST (14-36) U/L Troponin I (0.000-0.034) ng/mL Triglycerides 177 H (<150) mg/dL HDL Cholesterol 24 L (40-60) mg/dL 11/27/19 Range/Units 05:59 WBC (3.8-10.6) k/uL Neutrophils # (1.3-7.7) k/uL Sodium (137-145) mmol/L Potassium (3.5-5.1) mmol/L Chloride (98-107) mmol/L Carbon Dioxide (22-30) mmol/L BUN (7-17) mg/dL Creatinine (0.52-1.04) mg/dL Glucose (74-99) mg/dL POC Glucose (mg/dL) 212 H (75-99) mg/dL Plasma Lactic Acid Rosendo (0.7-2.0) mmol/L Magnesium (1.6-2.3) mg/dL AST (14-36) U/L Troponin I (0.000-0.034) ng/mL Triglycerides (<150) mg/dL HDL Cholesterol (40-60) mg/dL Assessment and Plan (1) Altered mental status Current Visit: Yes Status: Acute Code(s): R41.82 - ALTERED MENTAL STATUS, UNSPECIFIED SNOMED Code(s): 917181011 (2) Diabetes Current Visit: Yes Status: Acute Code(s): E11.9 - TYPE 2 DIABETES MELLITUS WITHOUT COMPLICATIONS SNOMED Code(s): 19856443 (3) Abnormal stress test Current Visit: Yes Status: Acute Code(s): R94.39 - ABNORMAL RESULT OF OTHER CARDIOVASCULAR FUNCTION STUDY SNOMED Code(s): 306854560 (4) Subarachnoid hemorrhage Current Visit: Yes Status: Acute Code(s): I60.9 - NONTRAUMATIC SUBARACHNOID HEMORRHAGE, UNSPECIFIED SNOMED Code(s): 769212159 Plan: Appreciate neurology input. I suspect she will need to be transferred to tertiary care center given her new computed tomography scan findings. Otherwise, we'll continue to follow
--- NOTE | 2019-11-27 08:31 | XR ---
EXAMINATION TYPE: XR chest 1V portable DATE OF EXAM: 11/27/2019 COMPARISON: NONE HISTORY: Shortness of breath TECHNIQUE: Single frontal view of the chest is obtained. FINDINGS: There is no focal air space opacity, pleural effusion, or pneumothorax seen. The cardiac silhouette size is within normal limits. Slight unfolding of the thoracic aorta. The osseous structu res are intact. Diffuse osseous demineralization and mild to moderate degenerative changes of the vis ualized spine and shoulders. IMPRESSION: No acute process.
[2019-11-27 08:56] VITALS: BMI 24.7
[2019-11-27] MEDS ORDERED: CHOLECALCIFEROL 1,000 UNIT TAB PO SCH (09:00)
[2019-11-27] MEDS ORDERED: LOSARTAN-HCTZ 50-12.5 MG 1 EACH TAB PO SCH (09:00)
[2019-11-27] MEDS ORDERED: ASPIRIN 81 MG PO SCH (09:00)
[2019-11-27] MEDS ORDERED: LOSARTAN 50 MG TAB PO SCH (09:00)
[2019-11-27] MEDS ORDERED: HYDROCHLOROTHIAZIDE 12.5 MG CAP PO SCH (09:00)
--- NOTE | 2019-11-27 09:38 | PN ---
PROGRESS NOTE Mrs. Gilman was seen by me early this morning. She had a CAT scan performed which revealed a small subarachnoid bleed. In view of this, she is going to be transferred to a facility where neurosurgery is available, although the probability of requiring neurosurgery is low. She is more alert. Her comprehension is not up to par, but her motor function is good. In light of what we are seeing with a bleed, I will hold Brilinta and aspirin and seek further input from Neurology. I spoke to the patient's daughter, Mrs. Madrid at length explained her the rationale for transfer. The patient's primary care physician was notified. I also spoke to Dr. Garcia. We will hopefully expedite the transfer today. The patient remains hemodynamically stable and neurologically has no significant motor deficits. Further input from Neurology is awaited. Prognosis remains guarded. MMELZBIETA / MAGALI: [id number] /
[2019-11-27] MEDS: glipiZIDE 10 MG TAB PO SCH ×2 (10:37→15:46)
[2019-11-27] MEDS: METOPROLOL TARTRATE 12.5 MG TAB PO SCH (10:38)
[2019-11-27] MEDS: TICAGRELOR 90 MG TAB PO SCH (10:38)
--- NOTE | 2019-11-27 10:44 | ECHOF ---
Referral Reason:EF study and bleeding MEASUREMENTS -------- HEIGHT: 170.2 cm WEIGHT: 73.0 kg BP: 105/77 RVIDd: 3.9 cm (< 3.3) IVSd: 1.2 cm (0.6 - 1.1) LVIDd: 4.1 cm (3.9 - 5.3) LVPWd: 1.5 cm (0.6 - 1.1) IVSs: 1.1 cm LVIDs: 3.6 cm LVPWs: 1.6 cm EDV(Teich): 75 ml ESV(Teich): 54 ml EF(Teich): 28 % %FS: 13 % SV(Teich): 21 ml Ao Diam: 3.0 cm (2.0 - 3.7) MV E Dell: 0.59 m/s MV DecT: 180 ms MV A Dell: 0.92 m/s MV E/A Ratio: 0.64 FINDINGS -------- Sinus rhythm. This was a technically difficult study with suboptimal views. LV not well visulized Can not coment on the LVEF. The right ventricle is moderately enlarged. The left atrium was not well visualized. The right atrium was not well visualized. xx ml of Lumason was utilized for enhancement of images. The aortic valve was not well visualized. There is no evidence of aortic stenosis. The mitral valve was not well visualized. No mitral regurgitation. The tricuspid valve was not well visualized. The pulmonic valve was not well visualized. The aortic root, ascending aorta and aortic arch are normal. The inferior vena cava is mildly dilated. There is no pericardial effusion. CONCLUSIONS -------- 1. Sinus rhythm. 2. This was a technically difficult study with suboptimal views. 3. LV not well visulized 4. Can not coment on the LVEF. 5. The right ventricle is moderately enlarged. 6. The left atrium was not well visualized. 7. The right atrium was not well visualized. 8. xx ml of Lumason was utilized for enhancement of images. 9. The aortic valve was not well visualized. 10. There is no evidence of aortic stenosis. 11. The mitral valve was not well visualized. 12. No mitral regurgitation. 13. The tricuspid valve was not well visualized. 14. The pulmonic valve was not well visualized. 15. The aortic root, ascending aorta and aortic arch are normal. 16. The inferior vena cava is mildly dilated. 17. There is no pericardial effusion. WARP SPINNER: Lisa Willoughby RDCS
--- NOTE | 2019-11-27 11:38 | P.PN ---
Subjective Progress Note Date: 11/27/19 Patient has much improved. Much more alert and awake, still appears slightly encephalopathic, delirious. Slightly restless. Patient is alert and awake. Asking when she can go home. Objective - Vital Signs Vital signs: Vital Signs Temp 98.3 F 11/27/19 08:00 Pulse 88 11/27/19 08:30 Resp 14 11/27/19 08:30 BP 96/67 11/27/19 08:30 Pulse Ox 98 11/27/19 08:30 Intake & Output 11/26/19 11/27/19 11/27/19 18:59 06:59 18:59 Intake Total 722 1205 225 Output Total 2525 65 Balance 722 -1320 160 Weight 73.4 kg 71.7 kg 71.7 kg Intake: IV 722 1125 225 Magnesium Sulfate-D5w Pmx 100 1 gm In Dextrose/Water 1 100ml.bag @ 100 mls/hr IVPB Q1H [facility] Rx#: [id number] Sodium Chloride 0.9% 1, 1125 125 000 ml @ 75 mls/hr IV . [id number] [facility] Rx#:[id number] Intake, IV Titration 80 Amount Alteplase 59 mg In Empty 60 Bag 1 bag @ 59 mls/hr IV ONCE ONE Rx#:[id number] Alteplase Bolus 7 mg In 20 Empty Syringe 1 syr @ 420 mls/hr IV ONCE [facility] Rx#: [id number] Output: Urine 2525 65 Other: Voiding Method Indwelling Catheter Indwelling Catheter - Exam Patient is more alert and awake, still slightly delirious/encephalopathic. Slightly restless. Speech is clear. No aphasia. On cranial examination pupils are round and reactive to light, visual narvaez reveals possible left-sided neglect versus some questionable field cut. Very inconsistent response but some focality noted on the left side with her visual field. Face is symmetric and tongue protrudes the midline. On muscle strength testing patient has left pronator drift. Her left weathercaster is weaker than the right. Her left deltoid is slightly weaker than the right. Strength in the legs appears fairly equal. Patient still has bilateral Babinski. Overall exam difficult because of her mental status. - Labs CBC & Chem 7: 11/27/19 04:24 11/27/19 04:24 Labs: Abnormal Lab Results - Last 24 Hours (Table) 11/26/19 11/26/19 11/26/19 Range/Units 11:50 13:37 13:38 WBC 12.2 H (3.8-10.6) k/uL Neutrophils # 10.0 H (1.3-7.7) k/uL Sodium (137-145) mmol/L Potassium (3.5-5.1) mmol/L Chloride (98-107) mmol/L Creatinine (0.52-1.04) mg/dL Glucose (74-99) mg/dL POC Glucose (mg/dL) 233 H 314 H (75-99) mg/dL Plasma Lactic Acid Rosendo (0.7-2.0) mmol/L Magnesium (1.6-2.3) mg/dL AST (14-36) U/L Troponin I (0.000-0.034) ng/mL Triglycerides (<150) mg/dL HDL Cholesterol (40-60) mg/dL 11/26/19 11/26/19 11/26/19 Range/Units 13:38 13:38 16:05 WBC (3.8-10.6) k/uL Neutrophils # (1.3-7.7) k/uL Sodium 133 L (137-145) mmol/L Potassium (3.5-5.1) mmol/L Chloride 94 L (98-107) mmol/L Creatinine 0.46 L (0.52-1.04) mg/dL Glucose 254 H (74-99) mg/dL POC Glucose (mg/dL) (75-99) mg/dL Plasma Lactic Acid Rosendo 3.5 H* (0.7-2.0) mmol/L Magnesium (1.6-2.3) mg/dL AST 51 H (14-36) U/L Troponin I 0.135 H* (0.000-0.034) ng/mL Triglycerides (<150) mg/dL HDL Cholesterol (40-60) mg/dL 11/26/19 11/26/19 11/26/19 Range/Units 16:05 20:06 20:06 WBC 12.9 H (3.8-10.6) k/uL Neutrophils # (1.3-7.7) k/uL Sodium 132 L (137-145) mmol/L Potassium (3.5-5.1) mmol/L Chloride 96 L (98-107) mmol/L Creatinine 0.45 L (0.52-1.04) mg/dL Glucose 248 H (74-99) mg/dL POC Glucose (mg/dL) (75-99) mg/dL Plasma Lactic Acid Rosendo 2.5 H* (0.7-2.0) mmol/L Magnesium 1.3 L (1.6-2.3) mg/dL AST (14-36) U/L Troponin I (0.000-0.034) ng/mL Triglycerides (<150) mg/dL HDL Cholesterol (40-60) mg/dL 11/26/19 11/26/19 11/27/19 Range/Units 20:50 23:50 04:24 WBC (3.8-10.6) k/uL Neutrophils # (1.3-7.7) k/uL Sodium 136 L (137-145) mmol/L Potassium 2.7 L* (3.5-5.1) mmol/L Chloride (98-107) mmol/L Creatinine 0.48 L (0.52-1.04) mg/dL Glucose 214 H (74-99) mg/dL POC Glucose (mg/dL) 353 H 330 H (75-99) mg/dL Plasma Lactic Acid Rosendo (0.7-2.0) mmol/L Magnesium 1.4 L (1.6-2.3) mg/dL AST (14-36) U/L Troponin I (0.000-0.034) ng/mL Triglycerides 177 H (<150) mg/dL HDL Cholesterol 24 L (40-60) mg/dL 11/27/19 11/27/19 11/27/19 Range/Units 04:24 05:59 08:32 WBC (3.8-10.6) k/uL Neutrophils # (1.3-7.7) k/uL Sodium (137-145) mmol/L Potassium (3.5-5.1) mmol/L Chloride (98-107) mmol/L Creatinine (0.52-1.04) mg/dL Glucose (74-99) mg/dL POC Glucose (mg/dL) 212 H (75-99) mg/dL Plasma Lactic Acid Rosendo 2.2 H* 2.9 H* (0.7-2.0) mmol/L Magnesium (1.6-2.3) mg/dL AST (14-36) U/L Troponin I (0.000-0.034) ng/mL Triglycerides (<150) mg/dL HDL Cholesterol (40-60) mg/dL Assessment and Plan Assessment: * Acute onset of encephalopathy, with altered mental status, post cardiac cath. Probable acute CVA. Patient does have mild focality to the left with possible visual field neglect and left arm weakness. Patient is status post intravenous TPA. * Small subarachnoid hemorrhage on the left side, post TPA. * Coronary artery disease, status post cardiac stenting. * Hypertension * Diabetes Plan: * Patient is status post TPA for probable acute stroke. Follow-up CT of head showed a small subarachnoid hemorrhage in the left side. At this time would hold off on antiplatelets and anticoagulants for 24 hours. Repeat computed tomography scan of head at 4 PM. If stable, can keep in the hospital, otherwise may have to be transferred to another facility, where neurosurgery is available. * Stat MRI of the brain to follow-up on the CVA. * No anticoagulants, or antiplatelets for the next 24 hours. * Await hemoglobin A1c, fasting a.m. lipid panel showed cholesterol 107, LDL 48, HDL 24 and triglycerides 177. TSH also pending. * 2-D echo was a technically difficult study with suboptimal views. It showed left-ventricular not well visualized. EF could not be estimated. The right ventricle is moderately enlarged. The left atrium not well visualized. The aortic valve not well visualized. No evidence of aortic stenosis. Uncertain if patient would need WILL. Cardiology following. * Await EEG. * We will follow up after MRI of the brain is completed. Addendum 2:39 PM: * MRI of the brain revealed an acute 8 mm right thalamic infarct. Additionally, there are 4 punctate infarcts measuring approximately 2-3 mm in the deep white matter of bilateral cerebral hemispheres. Given the bilateral involvement, embolic disease is suspected. Redemonstration of small volume subarachnoid hemorrhage within the left frontal and parietal region. * Patient's stroke appears embolic in nature. This could be from cardiac source, or related to microemboli from proximal vascular source. Her regular 2-D echo was technically limited study. Suggest transesophageal echocardiogram, to rule out cardioembolic source. * Patient needs to be on antiplatelet medication as soon as possible for cardiac stent, and also for acute ischemic stroke. However, at this time, placing on antiplatelet medication can make subarachnoid hemorrhage potentially worse. Therefore, I would suggest repeating computed tomography scan of head in a.m. If the hemorrhage has resolved on the CT, then may start aspirin from a.m. * EEG was abnormal due to background slowing of moderate to severe degree. This is suggestive of generalized cerebral dysfunction, as can be seen with toxic metabolic encephalopathy or due to diffuse structural brain abnormality. No epileptiform activity was seen. * Neurology coverage not available weekend.
--- NOTE | 2019-11-27 11:47 | P.CNPUL ---
History of Present Illness Consult date: 11/27/19 Requesting physician: Dilia Rojas Chief complaint: Acute mental status change, acute CVA, and subarachnoid hemorrhage History of present illness: 74-year-old white female patient of Dr. Parikh with an abnormal stress test and came in for heart catheterization and had a mid LAD lesion which she had a PCI and stenting for by Dr. NOE Kee on 11/27/2019. Chronic medical conditions include hypertension, diabetes mellitus type 2, never smoker. Following the procedure patient became quite confused, agitated, had acute mental status change, her baseline is normal mentation. Code stroke team was activated, patie nt was very difficult to assess related to her agitation, on initial exam no lateralizing deficits were appreciated or speech changes. Rapid response pricing/signage team member called us for our recommendation, as the patient was too agitated to undergo stat CT of the brain. We recommended 1 dose of Haldol, brain CT without contrast showed no acute intracranial hemorrhage or midline shift, and mild diffuse age-related cerebral atrophy and chronic small vessel ischemic change. Brain angiography CTA showed ascending aortic aneurysm measuring 4.4 cm, common carotid arteries show normal bifurcation, only mild atheromatous changes were present, no evidence of dissection embolus or aneurysm within the brain, anterior posterior circulation within the [place] is patent. Cerebral vessel calcifications were present. Patient was evaluated by neurology, and TPA was recommended for possibility of ischemic stroke. Patient was given TPA per protocol, and she was transferred to the intensive care unit for close monitoring, and neurological evaluations revealed left facial droop and left hand behavioral medical director weakness, and sensory alteration in the left leg. This morning patient had a follow-up CT brain which showed a new left frontal overall small volume subarachnoid hemorrhage. And old appearing right thalamus lacunar infarct. Echocardiogram has been completed, and it was a suboptimal study, LV was not well visualized, moderate enlargement of the right ventricle, no evidence of aortic stenosis, no mitral regurgitation, poor visualization of the tricuspid valve, mild dilation of the inferior vena cava. Patient is slightly drowsy but easily arousable to verbal stimuli, still has the slight left facial droop, and left hand weakness, and sensory alteration involving the left lower extremity. Denies any respiratory difficulty, she is on 2 L of oxygen and pulse ox of 98%, blood pressure is 96/67, afebrile, she is in sinus mechanism, with a rate of 97 BPM, no couplets of chest pain, her antiplatelet agents have been placed on hold, in view of recent history of TPA and new finding of subarachnoid hemorrhage. The decision has been made to transfer the patient to a tertiary care facility, as there is currently being no neurology coverage after 4:00 this afternoon. Review of Systems All systems: negative Constitutional: Denies chills, Denies fever Eyes: denies blurred vision, denies pain Ears, nose, mouth and throat: Denies headache, Denies sore throat Cardiovascular: Denies chest pain, Denies shortness of breath Respiratory: Denies cough Gastrointestinal: Denies abdominal pain, Denies diarrhea, Denies nausea, Denies vomiting Genitourinary: Denies dysuria, Denies hematuria Musculoskeletal: Denies myalgias Integumentary: Denies pruritus, Denies rash Neurological: Reports change in mentation, Denies numbness, Denies weakness Psychiatric: Denies anxiety, Denies depression Endocrine: Denies fatigue, Denies weight change Past Medical History Past Medical History: Chest Pain / Angina, Diabetes Mellitus, Hypertension History of Any Multi-Drug Resistant Organisms: None Reported Past Surgical History: Cholecystectomy, Hysterectomy, Tonsillectomy Additional Past Surgical History / Comment(s): rectocele/cystocle repair Past Anesthesia/Blood Transfusion Reactions: No Reported Reaction Past Psychological History: No Psychological Hx Reported Smoking Status: Never smoker Past Alcohol Use History: None Reported Past Drug Use History: None Reported - Past Family History Mother Family Medical History: Cancer Brother(s) Family Medical History: Cancer Medications and Allergies Home Medications Medication Instructions Recorded Confirmed Type Aspirin [Adult Low Dose Aspirin EC] 81 mg PO HS 11/23/19 11/26/19 History Chlorthalidone [Hygroton] 25 mg PO DAILY 11/23/19 11/26/19 History Cholecalciferol [Vitamin D3 (25 5,000 unit PO DAILY 11/23/19 11/26/19 History Mcg = 1000 Iu)] Furosemide [Lasix] 20 mg PO Q48H 11/23/19 11/26/19 History Metoprolol Tartrate [Lopressor] 12.5 mg PO BID 11/23/19 11/26/19 History Potassium Chloride 10 meq PO BID 11/23/19 11/26/19 History Rosuvastatin Calcium [Crestor] 5 mg PO HS 11/23/19 11/26/19 History cloNIDine HCL [Catapres] 0.1 mg PO DAILY 11/23/19 11/26/19 History glipiZIDE [Glucotrol] 20 mg PO AC-BID 11/23/19 11/23/19 History metFORMIN HCL 1,000 mg PO BID 11/23/19 11/23/19 History Allergies Allergy/AdvReac Type Severity Reaction Status Date / Time clarithromycin [From Biaxin] Allergy Chest Pain Unverified 11/23/19 14:46 primidone Allergy Unknown Unverified 11/23/19 14:46 Physical Exam Vitals: Vital Signs Temp Pulse Pulse Pulse Resp BP BP 11/27/19 08:30 88 14 96/67 11/27/19 08:00 98.3 F 84 84 15 96/66 11/27/19 07:00 81 84 19 110/59 11/27/19 06:30 98.9 F 85 18 102/65 11/27/19 06:00 88 87 17 107/57 11/27/19 05:30 84 18 102/67 11/27/19 05:00 85 82 20 102/60 11/27/19 04:30 81 18 109/63 11/27/19 04:00 98.5 F 85 20 105/77 11/27/19 03:30 94 20 124/73 11/27/19 03:00 98.5 F 92 21 106/67 11/27/19 02:30 95 20 108/74 11/27/19 02:00 96 22 113/72 11/27/19 01:30 99 19 105/67 11/27/19 01:04 99 22 11/27/19 01:00 100 19 115/72 11/27/19 00:30 97 21 103/80 11/27/19 00:04 99 F 105 H 22 11/27/19 00:00 99 F 107 H 22 115/77 11/26/19 23:34 101 H 22 11/26/19 23:30 101 H 22 118/72 11/26/19 23:04 102 H 22 11/26/19 23:00 101 H 22 131/76 11/26/19 22:34 102 H 19 11/26/19 22:30 100.8 F H 101 H 22 119/84 11/26/19 22:04 112 H 24 11/26/19 22:00 106 H 21 117/72 11/26/19 21:34 109 H 18 11/26/19 21:30 110 H 25 H 120/78 11/26/19 21:04 112 H 24 11/26/19 21:00 107 H 11 L 125/82 11/26/19 20:34 112 H 15 11/26/19 20:30 108 H 20 127/80 11/26/19 20:04 100.4 F H 108 H 22 11/26/19 20:00 108 H 15 11/26/19 19:34 97.9 F 101 H 11/26/19 19:30 101 H 22 119/72 11/26/19 19:04 97.9 F 98 11/26/19 18:34 97.9 F 90 11/26/19 18:04 97.9 F 96 11/26/19 17:53 96 11/26/19 17:49 97.9 F 97 11/26/19 17:34 97.9 F 93 11/26/19 17:30 99 33 H 138/84 11/26/19 17:19 97.9 F 90 11/26/19 17:04 97.9 F 89 11/26/19 17:00 97 27 H 161/86 11/26/19 16:49 97.9 F 87 11/26/19 16:34 97.9 F 85 11/26/19 16:30 85 8 L 11/26/19 16:19 97.9 F 86 11/26/19 16:00 90 16 171/77 11/26/19 15:30 97.7 F 97 33 H 11/26/19 15:00 15 182/106 11/26/19 14:30 42 H 137/121 11/26/19 14:29 30 H 11/26/19 12:00 60 19 11/26/19 11:49 60 114/70 11/26/19 11:34 141/86 BP Pulse Ox 11/27/19 08:30 98 11/27/19 08:00 106/68 98 11/27/19 07:00 107/68 97 11/27/19 06:30 98 11/27/19 06:00 120/70 100 11/27/19 05:30 98 11/27/19 05:00 109/62 99 11/27/19 04:30 99 11/27/19 04:00 92/62 99 11/27/19 03:30 92 L 11/27/19 03:00 111/69 99 11/27/19 02:30 99 11/27/19 02:00 116/72 99 11/27/19 01:30 99 11/27/19 01:04 116/81 99 11/27/19 01:00 99 11/27/19 00:30 99 11/27/19 00:04 107/72 99 11/27/19 00:00 96 11/26/19 23:34 115/71 98 11/26/19 23:30 96 11/26/19 23:04 116/70 98 11/26/19 23:00 97 11/26/19 22:34 113/72 97 11/26/19 22:30 97 11/26/19 22:04 124/89 96 11/26/19 22:00 98 11/26/19 21:34 132/81 97 11/26/19 21:30 97 11/26/19 21:04 135/78 96 11/26/19 21:00 98 11/26/19 20:34 124/88 96 11/26/19 20:30 94 L 11/26/19 20:04 137/76 94 L 11/26/19 20:00 87 L 11/26/19 19:34 11/26/19 19:30 97 11/26/19 19:04 121/74 11/26/19 18:34 145/98 11/26/19 18:04 123/77 98 11/26/19 17:53 135/85 98 11/26/19 17:49 135/85 98 11/26/19 17:34 150/78 97 11/26/19 17:30 97 11/26/19 17:19 149/81 98 11/26/19 17:04 151/80 96 11/26/19 17:00 93 L 11/26/19 16:49 138/84 98 11/26/19 16:34 165/85 96 11/26/19 16:30 97 11/26/19 16:19 161/86 95 11/26/19 16:00 96 11/26/19 15:30 97 11/26/19 15:00 11/26/19 14:30 97 11/26/19 14:29 11/26/19 12:00 11/26/19 11:49 11/26/19 11:34 Intake and Output 11/26/19 11/27/19 11/27/19 22:59 06:59 14:59 Intake Total 605 600 225 Output Total 0 465 65 Balance -1455 135 160 Intake: IV 525 600 225 Magnesium Sulfate-D5w Pmx 100 1 gm In Dextrose/Water 1 100ml.bag @ 100 mls/hr IVPB Q1H [facility] Rx#: [id number] Sodium Chloride 0.9% 1, 525 600 125 000 ml @ 75 mls/hr IV . [id number] [facility] Rx#:[id number] Intake, IV Titration 80 Amount Alteplase 59 mg In Empty 60 Bag 1 bag @ 59 mls/hr IV ONCE ONE Rx#:[id number] Alteplase Bolus 7 mg In 20 Empty Syringe 1 syr @ 420 mls/hr IV ONCE [facility] Rx#: [id number] Output: Urine 2059 465 65 Other: Voiding Method Indwelling Catheter Indwelling Catheter Weight 71.7 kg 71.7 kg GENERAL EXAM: Drowsy, but arousable, 74-year-old white female, 2 L of oxygen, with a left-sided facial droop, and left-sided handgrip weakness comfortable in no apparent distress. HEAD: Normocephalic/atraumatic. EYES: Normal reaction of pupils, equal size. Conjunctiva pink, sclera white. NOSE: Clear with pink turbinates. THROAT: No erythema or exudates. NECK: No masses, no JVD, no thyroid enlargement, no adenopathy. CHEST: No chest wall deformity. Symmetrical expansion. LUNGS: Equal air entry with no crackles, wheeze, rhonchi or dullness. CVS: Regular rate and rhythm, normal S1 and S2, no gallops, no murmurs, no rubs ABDOMEN: Soft, nontender. No hepatosplenomegaly, normal bowel sounds, no guarding or rigidity. EXTREMITIES: No clubbing, no edema, no cyanosis, 2+ pulses and upper and lower extremities. MUSCULOSKELETAL: Muscle strength and tone normal. SPINE: No scoliosis or deformity SKIN: No rashes CENTRAL NERVOUS SYSTEM: Drowsy, but arousable, left facial droop, left behavioral medical director weakness. No focal deficits, tone is normal in all 4 extremities. PSYCHIATRIC: Drowsy. Results - Laboratory Findings CBC and BMP: 11/27/19 04:24 11/27/19 04:24 PT/INR, D-dimer PT 10.7 sec (9.0-12.0) 11/27/19 04:24 INR 1.0 (<1.2) 11/27/19 04:24 Abnormal lab findings: Abnormal Labs 11/26/19 11/26/19 11/26/19 07:30 07:38 11:50 WBC Neutrophils # Sodium Potassium 3.0 L Chloride 93 L Carbon Dioxide 34 H BUN 18 H Creatinine Glucose 268 H POC Glucose (mg/dL) 263 H 233 H Plasma Lactic Acid Rosendo Magnesium AST Troponin I Triglycerides HDL Cholesterol 11/26/19 11/26/19 11/26/19 13:37 13:38 13:38 WBC 12.2 H Neutrophils # 10.0 H Sodium 133 L Potassium Chloride 94 L Carbon Dioxide BUN Creatinine 0.46 L Glucose 254 H POC Glucose (mg/dL) 314 H Plasma Lactic Acid Rosendo Magnesium AST 51 H Troponin I Triglycerides HDL Cholesterol 11/26/19 11/26/19 11/26/19 13:38 16:05 16:05 WBC Neutrophils # Sodium 132 L Potassium Chloride 96 L Carbon Dioxide BUN Creatinine 0.45 L Glucose 248 H POC Glucose (mg/dL) Plasma Lactic Acid Rosendo 3.5 H* Magnesium 1.3 L AST Troponin I 0.135 H* Triglycerides HDL Cholesterol 11/26/19 11/26/19 11/26/19 20:06 20:06 20:50 WBC 12.9 H Neutrophils # Sodium Potassium Chloride Carbon Dioxide BUN Creatinine Glucose POC Glucose (mg/dL) 353 H Plasma Lactic Acid Rosendo 2.5 H* Magnesium AST Troponin I Triglycerides HDL Cholesterol 11/26/19 11/27/19 11/27/19 23:50 04:24 04:24 WBC Neutrophils # Sodium 136 L Potassium 2.7 L* Chloride Carbon Dioxide BUN Creatinine 0.48 L Glucose 214 H POC Glucose (mg/dL) 330 H Plasma Lactic Acid Rosendo 2.2 H* Magnesium 1.4 L AST Troponin I Triglycerides 177 H HDL Cholesterol 24 L 11/27/19 11/27/19 05:59 08:32 WBC Neutrophils # Sodium Potassium Chloride Carbon Dioxide BUN Creatinine Glucose POC Glucose (mg/dL) 212 H Plasma Lactic Acid Rosendo 2.9 H* Magnesium AST Troponin I Triglycerides HDL Cholesterol - Diagnostic Findings Chest x-ray: image reviewed Additional studies: Brain CT, and angiography CT of the brain reviewed, echocardiogram reviewed, follow-up brain CT from 11/27/2019 reviewed Assessment and Plan Plan: Assessment: #1. Acute mental status change related to acute CVA, on 11/26/2019, requiring TPA infusion. Initial NIH score was 9, was initially quite agitated, then developed symptoms of encephalopathy, lethargic, left facial droop, and left hand behavioral medical director weakness. #2. Small-volume left frontal subarachnoid hemorrhage, following TPA infusion #3. Recent history of abnormal stress test #4. Coronary artery disease status post PCI and stenting of the mid LAD on 11/26/2019 #5. Diabetes mellitus type 2 #6. Hypertension #7. Lifetime nonsmoker Plan: Follow brain CT showed acute left frontal subarachnoid hemorrhage. Antiplatele therapy agents remain on hold, patient still has symptoms of left facial droop, and left behavioral medical director numbness with the sensory alteration in the left lower extremity. Continue 0.9 normal saline at a rate of 75 ML per hour. Echocardiogram has been reviewed, was a suboptimal film. Chest x-ray was within normal limits. Hemodynamically patient is stable, in sinus mechanism. In view of no coverage for neurology after 4:00 in the afternoon, we will transfer the patient to a tertiary Medical Center with neurology coverage, [facility]. Patient's family will be updated on progress, and the plan. I performed a history & physical examination of the patient and discussed their management with my nurse practitioner, Shanon Arzate. I reviewed the nurse practitioner's note and agree with the documented findings and plan of care. Lung sounds are positive for diminished breath sounds. The findings and the impression was discussed with the patient. I attest to the documentation by the nurse practitioner. Time with Patient: Greater than 30
--- NOTE | 2019-11-27 11:50 | CDI ---
Documentation Clarification Form Date: 11/27/2019 11:10:08 AM From: Mary Roque RN, CCDS Admit Date: 11/26/2019 03:18:00 PM Patient Name: Alia Gilman Visit Number: [id number] ATTENTION: The Clinical Documentation Specialists (CDI) and [facility] Coding Staff appreciate your assistance in clarifying documentation. Please respond to the clarification below the line at the bottom and electronically sign. The CDI & [facility] Coding staff will review the response and follow-up if needed. Please note: Queries are made part of the Legal Health Record. If you have any questions, please contact the author of this message via ITS. Dr. Milena Kee Patient was noted to have altered mental status s/p Cardiac Cath with PCI Patients Admitting Diagnosis: "positive stress test with anterioapical reversible defect and preserved LVF." Post-Operative Diagnosis: Calcified LAD 90% Procedure performed: "Left heart catheterization and coronary angiography. PTCA and stenting of a calcified tortuous mid LAD with a drug-eluting stent." History/Risk Factors: Chest pain, DM, HTN Clinical Indicators: 11/25 Medical Consult: "She had appropriate cardiac catheterization after the stress test which proved to be fairly straightforward from a cardiology perspective. However postoperatively she had mental status changes requiring TPA after evaluation from neurology." 11/25 Neurology Consult: "Patient is a 74-year-old female, who came for an elective cardiac catheterization today, in which she was found to have mid LAD lesion for which she underwent cardiac stenting. Patient came out of cardiac catheterization in normal mentation. Her last known well was at 1 PM. Patient was noted to have acute mental confusion, not able to speak, encephalopathic, noted at 1:30 PM. Stroke code was activated. Her NIH stroke scale was reported as 9." 11/25 Cardiology Progress note: "The patient received Angiomax bolus and infusion and she also received Brilinta 180 mg orally. She was brought back to the room, was quite stable for a couple of hours, and then she developed an episode of being confused and also quite agitated and quite disoriented. Possibility of stroke was considered. A code stroke was called. She had a CAT scan which did not reveal any bleed. She went on to have a CT angio after adequate sedation and that also did not reveal any evidence of thrombus or obstruction of any of the major visualized arterial system intracranially also. However, I spoke to Dr. Mcgrath and he felt under the circumstances tPA is still indicated and he thought possibly that maybe there may be a small clot which is not visualized. Given this, we went ahead with the tPA as per protocol. 11/26 Cardiology Progress note: "1.Status post PCI of complex mid LAD lesion, complicated by possible stroke. CAT scan did not reveal any significant bleed or midline shift. CT angio was negative for any evidence of thrombus or obstruction of any of the major vessels." 11/26 Cardiology Progress Note: "Mrs. Gilman was seen by me early this morning. She had a CAT scan performed which revealed a small subarachnoid bleed. In view of this, she is going to be transferred to a facility where neurosurgery is available. Treatment: Neurology consult as noted above and tPa initiated Code stroke called Plan for transfer to a tertiary facility In order to accurately reflect this patients severity of illness, please clarify if the CVA is a post-operative complication CVA is due to the Cardiac cath with PCI procedure CVA due to other specified co-morbid condition Also please specify -has been ruled out -is a complication of surgical procedure -is an expected outcome of the surgical procedure -is related to co-morbid condition(s) of -Other please specify -Unable to determine (Last Revision: October 2019) CVA is probably related to Cath/PCI, an unexpected complication in a patient with atheromatous aorta. MARY JANE
[2019-11-27 12:09] LABS: Glucose,Whole Blood 327 mg/dL (75-99)
--- NOTE | 2019-11-27 12:18 | CDI ---
Documentation Clarification Form Date: 11/27/2019 12:14:12 PM From: Mary Roque RN, CCDS Admit Date: 11/26/2019 03:18:00 PM Patient Name: Alia Gilman Visit Number: [id number] ATTENTION: The Clinical Documentation Specialists (CDI) and [facility] Coding Staff appreciate your assistance in clarifying documentation. Please respond to the clarification below the line at the bottom and electronically sign. The CDI & [facility] Coding staff will review the response and follow-up if needed. Please note: Queries are made part of the Legal Health Record. If you have any questions, please contact the author of this message via ITS. Dr. Harriett Bryan CVA is documented as a diagnosis in the Neurology Consult and Cardiology Progress notes. Patient history/risk factors: Chest pain, DM, HTN Clinical Indicators: 11/25 CT Brain w/o contrast: "No acute intracranial hemorrhage or midline shift. There is mild diffuse age-related cerebral atrophy and chronic small vessel ischemic change noted." 11/26 CT Brain w/o contrast: "NEW LEFT FRONTAL OVERALL SMALL VOLUME SUBARACHNOID HEMORRHAGE. OLD APPEARING RIGHT THALAMIC LACUNAR INFARCT.ACUITY COULD BE CONFIRMED WITH MRI." Treatment: 11/25 Consult: Neurology: "Patient came out of cardiac catheterization in normal mentation. Her last known well was at 1 PM. Patient was noted to have acute mental confusion, not able to speak, encephalopathic, noted at 1:30 PM. Stroke code was activated. Her NIH stroke scale was reported as 9.The stroke team spoke to the on-call stroke neurologist Dr. Billy, who recommended intravenous thrombolysis with TPA. tPA Plans to transfer to tertiary care facility In your professional opinion, please clarify the following: Cause: "Embolic in nature" Embolic Hemorrhagic Lacunar Stenosis Thrombosis Unable to Determine Laterality: "Right thalamic, but also multiple small bilateral as per MRI report" Left Right Bilateral Other (please specify) Unable to Determine Location Involved: "Subcortical" Brainstem Cerebellum Cortical Extradural Intraventricular Multiple Localized Subcortical Subarachnoid (If know specify vessel) "also has small subarachnoid hemorrhage in the left MCA vascular territory" Subdural (specify acuity) Other (please specify) Unable to Determine Also please include of applicable: Hemorrhagic conversion d/t tPA therapy "small subarachnoid hemorrhage, but no hemorrhagic conversion of the ischemic stroke." Unable to determine Also, indicate any deficits related to the Stroke/CVA in your documentation (such as aphasia, ataxia, cognitive deficits, dysphagia, hemiplegiaetc.) "patient has mild left hemiparesis, left visual field neglect." (Last Revision: June 2017) Answering to above questions (in summary): 1) embolic in nature 2) right thalamic, but also multiple small bilateral as per MRI report 3) subcortical; also there was small subarachnoid hemorrhage in the left frontal parietal region (MCA vascular territory). 4) small subarachnoid hemorrhage due to TPA. No hemorrhagic conversion of the ischemic stroke/intraparenchymal bleed 5) patient has mild left hemiparesis, left visual field neglect MTDD
--- NOTE | 2019-11-27 13:38 | MR ---
EXAMINATION TYPE: MR brain wo con DATE OF EXAM: 11/27/2019 COMPARISON: 11/27/[address] brain dated 11/26/2019 HISTORY: AMS, stroke. Intracranial hemorrhage. TECHNIQUE: Multiplanar, multisequence images of the brain and brainstem is performed without intravenous contras t. Fast protocol used given patient motion. FINDINGS: Diffusion weighted images demonstrate an 8 mm focus of restricted diffusion in the right th alamus as well as 4 punctate 2 to 3 mm foci in the bilateral cerebral hemispheres marked on DWI image s in the frontal and lobe on the right and parietal lobe on the left. There is redemonstration of subarachnoid hemorrhage in the left frontal and parietal regions as seen on the CT of the same date. There is no extra-axial fluid collection. Multiple foci of nonspecific wh ite matter change demonstrated as scattered foci of T2/FLAIR hyperintensity in the periventricular an d subcortical white matter. The ventricular system and cisternal spaces are symmetrically prominent c ompatible with age-related volume loss. Midline structures demonstrate normal morphology. The craniocervical junction appears within normal limits. The visualized sinuses demonstrate mild mucosal thickening in the ethmoid sinuses. The globes are intact. IMPRESSION: 1. The previously seen 8 mm right thalamic lacunar infarct is acute on MRI. Additionally there are 4 punctate infarcts measuring approximately 2-3 mm in the deep white matters of the bilateral cerebral hemispheres. Given the bilateral involvement embolic disease is suspected. 2. Redemonstration of small volume subarachnoid hemorrhage within the left frontal and parietal regio ns. A [place] level critical message alert has been initiated for Christopher Parikh MD via the [employer] Critical Results System on 11/27/2019 1:35 PM. This message alert has been sent to Christopher Parikh MD via the preferences provided by the clinician for the receipt of Radiology Critical Findings. Message ID [id number].
--- NOTE | 2019-11-27 13:58 | EEG ---
ELECTROENCEPHALOGRAM REPORT DATE OF SERVICE: 11/27/2019. PREAMBLE: A 74-year-old female with possible CVA. Patient has acute mental status change. Rule out any epileptiform activity. EEG FINDINGS: Portable 21 channel digital EEG was recording utilizing the international 10/20 system with bipolar and referential montages. The background consists of well- developed, but poorly-regulated, diffuse moderate voltage theta and delta slowing in bihemispheric region, which is somewhat frontally predominant. Different stages of sleep were not seen. Photic driving response was not seen. No definitive epileptiform activity was seen. IMPRESSION: This is an abnormal EEG due to background slowing of moderate to severe degree. This is suggestive of generalized cerebral dysfunction, as can be seen with toxic metabolic encephalopathy or due to diffuse structural brain abnormality. No epileptiform activity was seen. MMODL / IJN: [id number] / MTDD
[2019-11-27 14:49] VITALS: TEMP 99.5
[2019-11-27 16:58] LABS: Hemoglobin A1C 7.7 % (4.0-6.0)
[2019-11-27 17:32] VITALS: RESP 12
--- NOTE | 2019-11-27 17:33 | PN ---
PROGRESS NOTE Mrs. Gilman is much more alert this afternoon. She seems to have improved in terms of her comprehension, also. There are no motor deficits. She is actually sitting up watching TV and has some understanding of the stroke that she had. MRI information also reviewed and also the notes from neurologist, Dr. Bryan. It appears that her initial stroke was probably related to the coronary intervention procedure that I performed, and the subsequent subarachnoid bleed noted today could have been related to the tPA infusion. However, patient is stable hemodynamically, and also neurologically she is stable. We will follow her closely and at the suggestion of the neurologist and lean specialist, we will transfer her to a facility where neurosurgery is available. Hopefully patient will stabilize and again most of her neurological impairment as well. Cardiac-euceda no intervention. I am concerned that we are holding dual antiplatelet therapy in a patient with recent difficult mid LAD stenting with a drug-eluting stent, but after 24 hours we can re-evaluate the size of the bleed, extent of the bleed, and when okayed by Neurology or Neurosurgery, her dual antiplatelet therapy should be resumed. For now we will hold aspirin and Brilinta. Prognosis remains guarded. I discussed my thoughts in detail with the patient as well as her daughter. MMODL / IJN: [id number] /
[2019-11-27 18:28] VITALS: BP 115/65; PULSE 87
[2019-11-27] MEDS ORDERED: ATORVASTATIN 40 MG TAB PO SCH (21:00)
== END 2019-11-27 18:54 | disposition short-term general hospital (02) | DRG 981 ==
LOC: CATHCVL 07:10 → 3SCARD 10:49 → 2SICU 14:24 → CATHCVL 14:43 → 2SICU 15:18
PROVIDERS: ADMIT Family Medicine; ATTEND Family Medicine
PROC: 027034Z Dilation of Coronary Artery, One Artery with Drug-eluting Intraluminal Device, Percutaneous Approach (ICD-10-PCS; principal; 2019-11-26 09:00)
PROC: 3E03317 Introduction of Other Thrombolytic into Peripheral Vein, Percutaneous Approach (ICD-10-PCS; principal; 2019-11-26 09:00)
PROC: B2111ZZ Fluoroscopy of Multiple Coronary Arteries using Low Osmolar Contrast (ICD-10-PCS; principal; 2019-11-26 09:00)
PROC: 4A023N7 Measurement of Cardiac Sampling and Pressure, Left Heart, Percutaneous Approach (ICD-10-PCS; principal; 2019-11-26 09:00)
DX: I97.820 Postprocedural cerebrovascular infarction following cardiac surgery (principal); I60.8 Other nontraumatic subarachnoid hemorrhage; G93.41 Metabolic encephalopathy; R40.2223 Coma scale, best verbal response, incomprehensible words, at hospital admission; R40.2113 Coma scale, eyes open, never, at hospital admission; G81.94 Hemiplegia, unspecified affecting left nondominant side; I71.2 Thoracic aortic aneurysm, without rupture; E11.40 Type 2 diabetes mellitus with diabetic neuropathy, unspecified; I25.119 Atherosclerotic heart disease of native coronary artery with unspecified angina pectoris; I10 Essential (primary) hypertension; I45.10 Unspecified right bundle-branch block; E78.2 Mixed hyperlipidemia; E78.5 Hyperlipidemia, unspecified; R40.2353 Coma scale, best motor response, localizes pain, at hospital admission; H53.9 Unspecified visual disturbance; R29.709 NIHSS score 9; Y83.8 Other surgical procedures as the cause of abnormal reaction of the patient, or of later complication, without mention of misadventure at the time of the procedure; Y71.1 Therapeutic (nonsurgical) and rehabilitative cardiovascular devices associated with adverse incidents; T45.615A Adverse effect of thrombolytic drugs, initial encounter; Z90.710 Acquired absence of both cervix and uterus; Z98.890 Other specified postprocedural states; Z90.49 Acquired absence of other specified parts of digestive tract; Z80.9 Family history of malignant neoplasm, unspecified; Z79.82 Long term (current) use of aspirin; Z79.899 Other long term (current) drug therapy; Z79.84 Long term (current) use of oral hypoglycemic drugs; Z88.1 Allergy status to other antibiotic agents; Z88.8 Allergy status to other drugs, medicaments and biological substances; Z86.73 Personal history of transient ischemic attack (TIA), and cerebral infarction without residual deficits
CPT/HCPCS: 70450; 70496; 70498; 70551; 71045; 80048; 80053; 80061; 82550; 82553; 83036; 83605; 83735; 84484; 85025; 85027; 85610; 85730; 93306; 93458; 95816

== ENCOUNTER → 2019-12-04 | Outpatient (CLI) | payer MEDICARE, BC ==
[2019-12-04 08:32] LABS: African American GFR (CKD) >90 (>60 ml/min/1.73 sqM); Anion Gap 12 mmol/L; Blood Urea Nitrogen 13 mg/dL (7-17); Calcium 10.9 mg/dL (8.4-10.2); Carbon Dioxide 29 mmol/L (22-30); Chloride 96 mmol/L (98-107); Glucose 226 mg/dL (74-99); Non-African American GFR(CKD) 89 (>60 ml/min/1.73 sqM); Potassium 3.6 mmol/L (3.5-5.1); Sodium 137 mmol/L (137-145)
[2019-12-04 08:55] LABS: HGB 12.6 gm/dL (11.4-16.0); MCH 29.6 pg (25.0-35.0); MCHC 34.1 g/dL (31.0-37.0); MCV 86.7 fL (80.0-100.0); Mean Platelet Volume 7.9; Platelet Count 378 k/uL (150-450); RBC 4.27 m/uL (3.80-5.40); RDW 13.5 % (11.5-15.5); WBC 8.4 k/uL (3.8-10.6)
== END | disposition home or self-care (01) ==
LOC: LABWHC1 08:02
PROVIDERS: ATTEND Internal Medicine Interventional Cardiology
DX: I10 Essential (primary) hypertension (principal); I25.10 Atherosclerotic heart disease of native coronary artery without angina pectoris
CPT/HCPCS: 36415; 80048; 85027

== ENCOUNTER → 2022-03-08 | Outpatient (CLI) | payer MEDICARE, BC ==
--- NOTE | 2022-03-08 14:51 | XR ---
Left leg HISTORY: Pain Frontal and lateral views of the left leg Bone mineralization, joint spaces and alignment are maintained. Osteoarthritic changes noted within t he left knee, there may be a loose body. Some pretibial soft tissue swelling is present, focus of seven cification in the anterior soft tissues may be vascular, correlate for venous stasis disease. IMPRESSION: Nonspecific findings described above
== END ==
LOC: RADXRMAIN 11:41
PROVIDERS: ATTEND Family Medicine
DX: M19.072 Primary osteoarthritis, left ankle and foot (principal)

== ENCOUNTER → 2022-03-20 | Outpatient (CLI) | payer MEDICARE, BC ==
--- NOTE | 2022-03-20 08:25 | US ---
EXAMINATION TYPE: US venous doppler duplex LE LT DATE OF EXAM: 03/20/2022 8:12 AM COMPARISON: NONE CLINICAL HISTORY: M79.662 PAIN IN LEFT LOWER LEG. LLE pain x1 month SIDE PERFORMED: Left TECHNIQUE: The lower extremity deep venous system is examined utilizing real time linear array sonog bull with graded compression, doppler sonography and color-flow sonography. VESSELS IMAGED: Common Femoral Vein Deep Femoral Vein Greater Saphenous Vein * Femoral Vein Popliteal Vein Small Saphenous Vein * Proximal Calf Veins (* superficial vessels) Left Leg: Negative for DVT IMPRESSION: Grayscale, color doppler, spectral doppler imaging performed of the deep veins of the lo wer extremities. There is normal flow, compressibility, vascular waveforms.
== END | disposition home or self-care (01) ==
LOC: RADUSWWP 07:27
PROVIDERS: ATTEND Family Medicine
DX: M79.662 Pain in left lower leg (principal)

== ENCOUNTER 2022-11-21 06:25 | Day surgery (SDC) | payer MEDICARE, BC ==
[~2022-11-21 06:25] MED LIST changes: -ALPRAZolam 0.25 MG TAB PO PRN; -ALPRAZolam 0.5 MG TAB PO PRN; -ASPIRIN 325 MG TAB PO STA; +LACTATED RINGERS 1,000 ML IV SCH; +LIDOCAINE 1% (10MG/ML) FOR IV START INTRADERMA PRN; +MOXIFLOXACIN HCL 0.5% DROPS 3 ML BTL OP PRN; -NITROGLYCERIN SL TABS 0.4 MG TAB SUBLINGUAL PRN; -SODIUM CHLORIDE 0.9% 1,000 ML in EMPTY BAG 1 BAG IV ONE; +TETRACAINE 0.5% OPHTH (PF) DROPS 4 ML BTL OP PRN
[2022-11-21 07:16] VITALS: TEMP 97.2
[2022-11-21] MEDS: CYCLOPENTOLATE 1% OPHTH SOLN 2 ML BTL OP PRN ×3 (07:22→07:34)
[2022-11-21] MEDS: PHENYLEPHRINE 2.5% OPHTH DRP 2ML OP PRN ×3 (07:25→07:38)
[2022-11-21 07:41] LABS: Glucose,Whole Blood 257 mg/dL (70-110)
[2022-11-21] MEDS ORDERED: INSULIN ASPART (NovoLOG) 100 UNIT/ML VIAL SQ ONE (07:44)
[2022-11-21] MEDS ORDERED: BALANCED SALT IRRIG SOLN COMB2 15 ML IRRIG.SOLN IRRIGATION ONE ×2 (07:46→08:29)
[2022-11-21] MEDS ORDERED: HYALURONATE SODIUM INTRAOCULAR 1 EACH SYRINGE (12MG/ML) INTRAOCULA ONE ×2 (07:46→08:28)
[2022-11-21] MEDS ORDERED: EPINEPHrine (PF) 0.3 ML in BALANCED SALT IRRIG SOLN COMB2 500 ML IRRIGATION ONE (07:47)
[2022-11-21] MEDS ORDERED: LIDOCAINE 1% (PF) 10MG/ML VIAL MISCELLANE ONE ×2 (07:47→08:29)
[2022-11-21] MEDS: TIMOLOL 0.5% OPHTH DROPS 5 ML BTL OP PRN ×2 (07:47→08:29)
[2022-11-21] MEDS ORDERED: MIDAZOLAM 2 MG/2 ML VIAL ONE (08:10)
[2022-11-21] MEDS ORDERED: MOXIFLOXACIN HCL 0.5% DROPS 3 ML BTL RIGHT EYE ONE ×2 (08:10→08:29)
[2022-11-21] MEDS ORDERED: fentaNYL (PF) 50 MCG/ML 2 ML AMP ONE (08:10)
[2022-11-21] MEDS ORDERED: LACTATED RINGERS 1,000 ML IV ONE (08:15)
--- NOTE | 2022-11-21 08:42 | P.OP ---
Date of Procedure: 11/21/22 Preoperative Diagnosis: NS & CS Postoperative Diagnosis: same Procedure(s) Performed: PIOL, OD Implants: [id number] 19.50 Anesthesia: MAC Surgeon: Walter Bernarod Pathology: none sent Condition: stable Disposition: same day Indications for Procedure: blurry vision Operative Findings: no complications
[2022-11-21 09:11] LABS: Glucose,Whole Blood 253 mg/dL (70-110)
[2022-11-21 09:29] VITALS: BP 133/71; PULSE 61; RESP 14
--- NOTE | 2022-11-21 20:39 | OP ---
OPERATIVE REPORT DATE OF SERVICE : 11/21/2022 PROCEDURE PERFORMED: Phacoemulsification of cataract and intraocular lens implant of the right eye. PREOPERATIVE DIAGNOSIS: Nuclear sclerosis and cortical sclerosis. POSTOPERATIVE DIAGNOSIS: Nuclear sclerosis and cortical sclerosis. ESTIMATED BLOOD LOSS: Zero. SPECIMEN TAKEN: None. NARRATIVE: After obtaining the appropriate consent, the patient was brought to the operating room where the patient was placed under cardiac monitoring and prepped and draped in the usual sterile manner. At the 11 o'clock position, a 15-degree super sharp blade was used to create a paracentesis followed by instillation of 1% Xylocaine MPF 50:50 mix with BSS into the anterior chamber. This was followed by Amvisc viscoelastic to stabilize the anterior chamber. At the 9 o'clock position a self-sealing corneal flap incision was created using 2.8 mm maverick keratome. A cystotome was used to initiate a continuous tear capsulorrhexis which was completed with the Utrata forceps. A Binkhorst cannula was used to hydrodissect the lens nucleus followed by hydrodelineation. Phacoemulsification of the lens was performed utilizing phacochop in 30.65 seconds at 12% power. The remaining cortical material was removed using the irrigation aspiration mode followed by additional 1% Xylocaine MPF into the anterior chamber followed by viscoelastic to stabilize the capsular bag. A [employer]ch [employer] Lomb MX 60E 19.5 diopter posterior chamber lens was placed into the capsular bag without difficulty. The remaining viscoelastic material was removed from the anterior chamber with the irrigation/aspiration. Balanced salt solution was used to normalize the intraocular pressure. The incision was checked for watertight integrity. The patient then received 2 drops of 0.5% timolol followed by 2 drops Vigamox, was lightly patched and shielded in the usual manner. There were no complications from the procedure. The patient tolerated the procedure well and was returned to recovery in good condition. MMODL / IJN: [id number] /
== END 2022-11-21 09:54 | disposition home or self-care (01) ==
LOC: OR 06:25
PROVIDERS: ATTEND Ophthalmology
DX: H25.11 Age-related nuclear cataract, right eye (principal); H25.011 Cortical age-related cataract, right eye; E11.36 Type 2 diabetes mellitus with diabetic cataract; I11.9 Hypertensive heart disease without heart failure; I25.10 Atherosclerotic heart disease of native coronary artery without angina pectoris; E78.00 Pure hypercholesterolemia, unspecified; Z86.73 Personal history of transient ischemic attack (TIA), and cerebral infarction without residual deficits; Z79.02 Long term (current) use of antithrombotics/antiplatelets; Z79.82 Long term (current) use of aspirin; Z79.899 Other long term (current) drug therapy; Z79.84 Long term (current) use of oral hypoglycemic drugs; Z98.890 Other specified postprocedural states; Z88.8 Allergy status to other drugs, medicaments and biological substances; Z88.1 Allergy status to other antibiotic agents; H04.121 Dry eye syndrome of right lacrimal gland; Z83.511 Family history of glaucoma; Z83.518 Family history of other specified eye disorder; Z82.49 Family history of ischemic heart disease and other diseases of the circulatory system; Z82.61 Family history of arthritis; Z83.3 Family history of diabetes mellitus
CPT/HCPCS: 66984; V2632; J2250; J0171; J3010; J2001

== ENCOUNTER 2022-12-12 06:33 | Day surgery (SDC) | payer MEDICARE, BC ==
[2022-12-06 16:17] VITALS: BMI 25.0
[~2022-12-12 06:33] MED LIST changes: +CYCLOPENTOLATE 1% OPHTH SOLN 2 ML BTL OP PRN; -LIDOCAINE 1% (10MG/ML) FOR IV START INTRADERMA PRN; +PHENYLEPHRINE 2.5% OPHTH DRP 2ML OP PRN; +TIMOLOL 0.5% OPHTH DROPS 5 ML BTL OP PRN
[2022-12-12 07:01] VITALS: TEMP 97.1
[2022-12-12] MEDS ORDERED: LIDOCAINE 1% (10MG/ML) FOR IV START INTRADERMA ONE (07:11)
[2022-12-12 07:24] LABS: Glucose,Whole Blood 166 mg/dL (70-110)
[2022-12-12] MEDS ORDERED: MIDAZOLAM 2 MG/2 ML VIAL ONE (07:25)
[2022-12-12] MEDS ORDERED: fentaNYL (PF) 50 MCG/ML 2 ML AMP ONE (07:25)
[2022-12-12] MEDS ORDERED: EPINEPHrine (PF) 0.3 ML in BALANCED SALT IRRIG SOLN COMB2 500 ML IRRIGATION ONE (07:43)
[2022-12-12] MEDS ORDERED: BALANCED SALT IRRIG SOLN COMB2 15 ML IRRIG.SOLN IRRIGATION ONE (07:44)
[2022-12-12] MEDS ORDERED: LIDOCAINE 1% (PF) 10MG/ML VIAL MISCELLANE ONE (07:44)
[2022-12-12] MEDS ORDERED: HYALURONATE SODIUM INTRAOCULAR 1 EACH SYRINGE (12MG/ML) INTRAOCULA ONE (07:44)
--- NOTE | 2022-12-12 07:56 | P.OP ---
Date of Procedure: 12/12/22 Preoperative Diagnosis: NS & CS Postoperative Diagnosis: same Procedure(s) Performed: PIOL, OS Implants: MX60E 19.50 Anesthesia: MAC Surgeon: Walter Bernardo Pathology: none sent Condition: stable Disposition: same day Indications for Procedure: blurry vision Operative Findings: no complications
[2022-12-12 08:06] VITALS: BP 148/83; PULSE 65; RESP 12
--- NOTE | 2022-12-12 15:03 | OP ---
OPERATIVE REPORT DATE OF SERVICE : 12/12/2022 PREOPERATIVE DIAGNOSES: Nuclear sclerosis and cortical sclerosis. POSTOPERATIVE DIAGNOSES: Nuclear sclerosis and cortical sclerosis. OPERATION: Phacoemulsification of cataract and interocular lens implant of the left eye. ESTIMATED BLOOD LOSS: Zero. SPECIMEN TAKEN: None. NARRATIVE: After obtaining the appropriate consent, the patient was brought to the operating room where the patient was placed under cardiac monitoring and prepped and draped in the usual sterile manner. At the 5 o'clock position, a 15-degree super sharp blade was used to create a paracentesis followed by instillation of 1% Xylocaine MPF 50:50 mix with BSS into the anterior chamber. This was followed by Amvisc viscoelastic to stabilize the anterior chamber. At the 3 o'clock position a self-sealing corneal flap incision was created using 2.8 mm maverick keratome. A cystotome was used to initiate a continuous tear capsulorrhexis which was completed with the Utrata forceps. A Binkhorst cannula was used to hydrodissect the lens nucleus followed by hydrodelineation. Phacoemulsification of the lens was performed utilizing phaco chop in 19.28 seconds at 17% power. The remaining cortical material was removed using the irrigation aspiration mode followed by additional 1% Xylocaine MPF into the anterior chamber followed by viscoelastic to stabilize the capsular bag. A Bausch [employer] Lomb MX60E 19.5 diopters posterior chamber lens was placed into the capsular bag without difficulty. The remaining viscoelastic material was removed from the anterior chamber with the irrigation/aspiration. Balanced salt solution was used to normalize the intraocular pressure. The incision was checked for watertight integrity. The patient then received 2 drops of 0.5% timolol followed by 2 drops Vigamox, was lightly patched and shielded in the usual manner. There were no complications from the procedure. The patient tolerated the procedure well and was returned to recovery in good condition. MMODL / IJN: [id number] /
== END 2022-12-12 08:29 | disposition home or self-care (01) ==
LOC: OR 06:33
PROVIDERS: ATTEND Ophthalmology
DX: H25.12 Age-related nuclear cataract, left eye (principal); I10 Essential (primary) hypertension; E78.5 Hyperlipidemia, unspecified; Z88.8 Allergy status to other drugs, medicaments and biological substances; Z86.73 Personal history of transient ischemic attack (TIA), and cerebral infarction without residual deficits; Z79.82 Long term (current) use of aspirin; Z95.5 Presence of coronary angioplasty implant and graft; Z79.899 Other long term (current) drug therapy; Z79.02 Long term (current) use of antithrombotics/antiplatelets
CPT/HCPCS: 66982; C1780; J2250; J0171; J3010; J2001

== ENCOUNTER → 2023-08-09 | Outpatient (CLI) | payer MEDICARE, BC ==
[2023-08-09 14:02] LABS: ALT 18 U/L (4-34); AST 21 U/L (14-36); African American GFR (CKD) >90 (>60 ml/min/1.73 sqM); Albumin 4.3 g/dL (3.5-5.0); Albumin/Globulin Ratio 1.7; Alkaline Phosphatase 84 U/L (38-126); Anion Gap 11 mmol/L; Blood Urea Nitrogen 18 mg/dL (7-17); Calcium 9.9 mg/dL (8.4-10.2); Carbon Dioxide 28 mmol/L (22-30); Chloride 99 mmol/L (98-107); Globulin 2.5 g/dL; Glucose 144 mg/dL (74-99); Non-African American GFR(CKD) >90 (>60 ml/min/1.73 sqM); Sodium 138 mmol/L (137-145); Total Bilirubin 0.5 mg/dL (0.2-1.3); Total Protein 6.8 g/dL (6.3-8.2)
--- NOTE | 2023-08-09 16:09 | CT ---
EXAMINATION TYPE: CT angio chest DATE OF EXAM: 08/09/2023 2:46 PM COMPARISON: None HISTORY: Thoracic aortic aneurysm w/o rupture CT DLP: 480.5 mGycm Automated exposure control for dose reduction was used. CONTRAST: CTA scan of the thorax is performed with IV Contrast, patient injected with 100 mL of Isovue 370, pul monary embolism protocol. . FINDINGS: The lungs are clear of consolidative/airspace density or abnormal interstitial density. There are no suspicious lung masses or nodules. There is no pleural effusion, pleural thickening or pneumothorax. There is an ascending thoracic aortic aneurysm measuring 4.6 cm. There is no mediastinal, hilar or axillary adenopathy. Limited scanning through the upper abdomen reveals cholecystectomy. The liver appears prominent in si ze. No focal osseous lesions are seen. IMPRESSION: 1. 4.6 cm fusiform ascending thoracic aortic aneurysm. 2. Hepatomegaly. 3. No acute cardiopulmonary disease
== END | disposition home or self-care (01) ==
LOC: RADCTMAIN 13:14
PROVIDERS: ATTEND Internal Medicine Interventional Cardiology
DX: I71.21 Aneurysm of the ascending aorta, without rupture (principal); R16.0 Hepatomegaly, not elsewhere classified; G25.0 Essential tremor; I10 Essential (primary) hypertension
CPT/HCPCS: 80053; 71275; 36415; Q9967

== ENCOUNTER → 2024-08-04 | Outpatient (CLI) | payer MEDICARE, BC ==
[2024-08-04 11:42] LABS: African American GFR (CKD) >90 (>60 ml/min/1.73 sqM); Blood Urea Nitrogen 15 mg/dL (7-17); Non-African American GFR(CKD) 90 (>60 ml/min/1.73 sqM)
--- NOTE | 2024-08-04 14:46 | CT ---
EXAMINATION TYPE: CT angio chest CT DLP: 620.7 mGycm, Automated exposure control for dose reduction was used. DATE OF EXAM: 08/04/2024 12:50 PM COMPARISON: CTA chest 08/09/2023 CLINICAL INDICATION:Female, 78 years old with history of I71.20 THORACIC AORTIC ANEURYSM; f/u aneurys m TECHNIQUE/CONTRAST: CTA scan of the thorax is performed without and with IV Contrast, patient injected with 100 mL of Iso rebekah 370,. 3D reconstructed images are created on an independent workstation and reviewed.. FINDINGS: Lungs/Pleura: No evidence of focal consolidation, pleural effusion or pneumothorax. Stable pleural ba se right middle lobe 4 mm pulmonary nodule (series 7, image 76). Stable left upper lobe 3 mm pulmonar y nodule (series 7, image 76). Stable left upper lobe pleural-based 4 mm pulmonary nodule (series 7, image 83). Stable lingular 2 mm pulmonary nodule (series 7, image 96). Stable left lower lobe pleural -based 3 mm pulmonary nodule (series 7, image 107). Stable posterior right upper lobe 3 mm pulmonary nodule (series 7, image 71). Airway: Large airways are patent. Heart: Heart is within normal limits for size.. No pericardial effusion. Moderate coronary arterial c alcifications. Vasculature: Conventional aortic arch branching anatomy. Mild atherosclerotic calcification of the ao rta and its branches. Stable fusiform aneurysmal dilatation aortic root measuring up to 4.1 cm. Stabl e fusiform ascending thoracic aortic aneurysm measuring 4.6 cm. The descending thoracic aorta measure s up to 2.8 cm. No evidence of intramural hematoma or dissection. No evidence for pulmonary embolism. Mediastinum: No gross evidence of adenopathy. Musculoskeletal: No acute osseous abnormalities. Bilateral shoulder arthropathy. 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 Soft Tissues: Unremarkable. Lower neck: No significant findings. Upper Abdomen: Small hiatal hernia. Gallbladder surgically absent. Left renal cortical 1.3 cm cyst. IMPRESSION: 1. Stable fusiform ascending thoracic aortic aneurysm measuring 4.6 cm. Stable aneurysm dilatation o f the aortic root measuring up to 4.1 cm. 2. Several stable pulmonary nodules measuring up to 4 mm. In a low risk patient, no follow-up is rec ommended. In a high-risk patient consider optional CT chest in 12 months. [facility], , 08/04/2024 2:43 PM
== END | disposition home or self-care (01) ==
LOC: RADCTMAIN 11:03
PROVIDERS: ATTEND Thoracic Surgery (Cardiothoracic Vascular Surgery)
DX: I71.21 Aneurysm of the ascending aorta, without rupture (principal); R91.8 Other nonspecific abnormal finding of lung field; K44.9 Diaphragmatic hernia without obstruction or gangrene; N28.1 Cyst of kidney, acquired
CPT/HCPCS: 82565; 84520; 71275; 36415; Q9967